=== PATIENT | male | born 1945 | race Caucasian/White ===

== ENCOUNTER 2016-07-31 11:28 | Inpatient (IN) | payer MEDICARE, MEDICAID ==
[2016-07-31] VITALS (8 sets, daily range): BP systolic 71–107; BP diastolic 50–75
[~2016-07-31] VITALS: Ht 172.7 cm; Wt 79.1 kg
[~2016-07-31 11:28] MED LIST: ADVAIR DISKU IN; AMLODIPINE BESYL5 MG PO; ASMANEX 120220 MCG IN; ASMANEX 30110 MCG IN; ASPIRIN ADULT L81 MG PO; ASPIRIN CHEWABL81 MG OR; ASPIRIN CHEWABL81 MG PO; ASPIRIN LOW DOS81 M2 PO; ATORVASTATIN CA40 MG PO; AVELOX400 MG PO; AZITHROMYCIN500 MG PO; BACLOFEN10 MG PO; BACTRIM DS1 TAB PO; BROVANA15 MCG IN; BUDESONID2 IN; CIPROFLOXACN500 MG PO; COMBIVENT IN; COMBIVENT RESPIMAT IN; COUMADIN10 MG PO; COUMADIN7.5 MG PO; DEBROX6.5 % AU; DIGOXIN0.125 MG PO; DOXYCYCL HYC100 M3 OR; DULERA1 AE1 IN; DUONEB IN; FLEET RE; FLOVENT HFA220 MCG IN; HYDROCHLORO25 MG/TAB PO; IPRATROPIU0.5 MG/3 M IN; ISOSORB MONO30 MG PO; ISOSORBIDE MONO60 MG PO; LEVALBUTERO1 IN; LEVAQUIN750 MG PO; LIPITOR20 MG PO; LIPITOR40 M1 PO; LISINOP/HCTZ1 TAB PO; LISINOPRIL10 MG PO; LISINOPRIL20 M1 PO; LOPRESSOR25 MG PO; LOSARTAN POT100 MG PO; LOSARTAN POTASS50 MG PO; LOVENOX80 MG/0.8 SC; MAG CITRATE PO; MEDDOSEPAK PO; METO50TA52 PO; METOPROL TAR25 MG PO; METOPROLOL50 M1 PO; MIRALAX3350 N1 PO; MUCINEX600 MG PO; NITROGLYCER0.4 MG/HR TD; NITROSTAT0.4 MG SL; NO HOME MEDS; PEPCID20 MG PO; PHENERGAN25 MG/TAB PO; PLAVIX75 MG PO; PREDNISONE10 MG PO; PREDNISONE20 MG OR; PREDNISONE50 MG PO; PROAIR HFA IN; ROBITUSSIN AC10 ML PO; SOLU-MEDROL125 MG IM; SPIRIVA HANDIHALER IN; SUPER B COM2 PO; SYMBICORT1 AE1 IN; TAMSULOSIN HCL0.4 MG PO; TAMSULOSIN0.4 MG PO; TRAMADOL HCL50 MG PO; VENTOLIN HFA IN; ZITHROMAX250 MG PO; ZPAK PO; [UNRECOGNIZED DRUG - OTHER]
[2016-07-31 12:01] LABS: HEMATOCRIT 37.4 % (39.0-50.0); HEMOGLOBIN 13.5 g/dl (14.0-18.0); IMMATURE GRANULOCYTES 1.1 % (0.0-1.0); MEAN CORPUSCULAR HGB 33.9 pG CALC (26.0-32.0); MEAN CORPUSCULAR HGB CONC 36.1 g/L CALC (32.0-36.0); NEUT# 4.77 thou/uL (1.82-7.42); RED BLOOD COUNT 3.98 mill/uL (4.70-6.10); RED CELL DISTRI WIDTH 12.2 % (11.5-15.5)
[2016-07-31 12:16] LABS: BILIRUBIN, TOTAL 0.7 mg/dL (0.0-1.4); POTASSIUM 3.7 mmol/l (3.5-5.1); TOTAL PROTEIN 5.9 g/dL (6.3-8.2)
[2016-07-31 12:35] LABS: INTERNATIONAL NORMALIZED RATIO 2.4 RATIO (0.7-1.3); PROTHROMBIN TIME 27.8 SECONDS (9.0-12.5)
[2016-07-31] MEDS ORDERED: CEFUROXIME250 MG PO (12:37)
[2016-07-31] MEDS ORDERED: COUMADIN5 MG PO (12:39)
[2016-07-31] MEDS ORDERED: CENTRUM PO (12:40)
[2016-07-31] MEDS ORDERED: DUONEB IN (12:41)
[2016-07-31] MEDS ORDERED: IRON45 MG PO (12:42)
[2016-07-31] MEDS ORDERED: FAMOTIDINE20 M1 PO (12:43)
[2016-07-31] MEDS ORDERED: PROAIR HFA108 MCG/AC IN (12:44)
[2016-07-31] MEDS ORDERED: MICRO-K10 ME1 PO (12:59)
[2016-07-31] MEDS ORDERED: BUMETANIDE1 MG PO (13:00)
[2016-07-31] MEDS ORDERED: METOLAZONE5 MG PO (13:01)
[2016-07-31 13:33] LABS: URINE BILIRUBIN - DIPSTICK NEGATIVE (NEGATIVE); URINE BLOOD DIPSTICK TRACE-INTACT (NEGATIVE); URINE COLOR YELLOW; URINE GLUCOSE - DIPSTICK NEGATIVE (NEGATIVE); URINE KETONE NEGATIVE (NEGATIVE); URINE LEUK ESTERASE NEGATIVE (NEGATIVE); URINE NITRITE - DIPSTICK NEGATIVE (Negative); URINE PROTEIN - DIPSTICK 100 mg/dL (NEG-TRACE); URINE UROBILINOGEN - DIPSTICK 0.2 E.U./dL (0.2)
[2016-07-31 13:35] LABS: URINE CLARITY SLIGHT CLOUDY
[2016-07-31 13:38] LABS: URINE EPITHELIAL CELLS RARE EPI/hpf (0-FEW); URINE MUCUS MODERATE hpf (NONE-FEW); URINE RBC 0-2 RBC/hpf (0-5)
[2016-08-01] VITALS (11 sets, daily range): BP systolic 86–108; BP diastolic 54–78
[2016-08-01 04:45] LABS: HEMATOCRIT 35.4 % (39.0-50.0); HEMOGLOBIN 12.4 g/dl (14.0-18.0); IMMATURE GRANULOCYTES 1.1 % (0.0-1.0); MEAN CELL VOLUME 94.7 fL CALC (80.0-100.0); MEAN CORPUSCULAR HGB 33.2 pG CALC (26.0-32.0); NEUT# 3.04 thou/uL (1.82-7.42); RED BLOOD COUNT 3.74 mill/uL (4.70-6.10); RED CELL DISTRI WIDTH 12.2 % (11.5-15.5)
[2016-08-01 04:57] LABS: MAGNESIUM 1.8 mg/dL (1.6-2.3)
[2016-08-01 05:00] LABS: CALCIUM 8.2 mg/dL (8.4-10.2); CREATININE 2.1 mg/dL (0.7-1.3); INTERNATIONAL NORMALIZED RATIO 2.4 RATIO (0.7-1.3); POTASSIUM 3.1 mmol/l (3.5-5.1); PROTHROMBIN TIME 28.4 SECONDS (9.0-12.5)
[2016-08-02 05:32] VITALS: BP 117/80
[2016-08-02 06:04] LABS: HEMATOCRIT 38.5 % (39.0-50.0); HEMOGLOBIN 13.5 g/dl (14.0-18.0); IMMATURE GRANULOCYTES 1.5 % (0.0-1.0); MEAN CELL VOLUME 96.5 fL CALC (80.0-100.0); MEAN CORPUSCULAR HGB 33.8 pG CALC (26.0-32.0); MEAN CORPUSCULAR HGB CONC 35.1 g/L CALC (32.0-36.0); NEUT# 3.96 thou/uL (1.82-7.42); RED BLOOD COUNT 3.99 mill/uL (4.70-6.10); RED CELL DISTRI WIDTH 12.2 % (11.5-15.5)
[2016-08-02 06:32] LABS: INTERNATIONAL NORMALIZED RATIO 1.7 RATIO (0.7-1.3); PROTHROMBIN TIME 19.6 SECONDS (9.0-12.5)
[2016-08-02 06:34] LABS: CALCIUM 8.4 mg/dL (8.4-10.2); CREATININE 1.7 mg/dL (0.7-1.3); POTASSIUM 3.9 mmol/l (3.5-5.1)
[2016-08-02 08:05] VITALS: BP 106/74
[2016-08-02 12:19] VITALS: BP 91/63; BP 99/69
== END 2016-08-02 15:29 | disposition home or self-care (01) | DRG 309 ==
LOC: ENPENDDIS → ED 11:28 → ED-I 14:16 → ED 16:11 → ICU 16:12 → MS2 08-01 15:20
PROVIDERS: Emergency Medicine; ADMIT Internal Medicine; ATTEND Internal Medicine
DX: I48.0 Paroxysmal atrial fibrillation (principal); N17.9 Acute kidney failure, unspecified; J44.9 Chronic obstructive pulmonary disease, unspecified; I50.9 Heart failure, unspecified; I13.0 Hypertensive heart and chronic kidney disease with heart failure and stage 1 through stage 4 chronic kidney disease, or unspecified chronic kidney disease; E86.0 Dehydration; I95.1 Orthostatic hypotension; E87.6 Hypokalemia; N18.2 Chronic kidney disease, stage 2 (mild); I25.118 Atherosclerotic heart disease of native coronary artery with other forms of angina pectoris; I25.2 Old myocardial infarction; I73.9 Peripheral vascular disease, unspecified; T50.2X5A Adverse effect of carbonic-anhydrase inhibitors, benzothiadiazides and other diuretics, initial encounter; E78.5 Hyperlipidemia, unspecified; Z91.14 Patient's other noncompliance with medication regimen; Z87.891 Personal history of nicotine dependence; Z95.820 Peripheral vascular angioplasty status with implants and grafts; Z86.73 Personal history of transient ischemic attack (TIA), and cerebral infarction without residual deficits; Z79.01 Long term (current) use of anticoagulants; Z95.1 Presence of aortocoronary bypass graft

== ENCOUNTER 2016-08-22 12:02 | Inpatient (IN) | payer MEDICARE, MEDICAID ==
[2016-08-22] VITALS (8 sets, daily range): BP systolic 105–114; BP diastolic 66–76
[~2016-08-22] VITALS: Ht 172.7 cm; Wt 83.9 kg
[~2016-08-22 12:02] MED LIST changes: +BUMETANIDE1 MG PO; +CEFUROXIME250 MG PO; +CENTRUM PO; +COUMADIN5 MG PO; +FAMOTIDINE20 M1 PO; +IRON45 MG PO; +METOLAZONE5 MG PO; +MICRO-K10 ME1 PO; +PROAIR HFA108 MCG/AC IN
--- NOTE | 2016-08-22 12:04 | NUR ---
PT TO ROOM FOR TREATMENT VIA WHEELCHAIR
--- NOTE | 2016-08-22 12:22 | NUR ---
PT C/O SOBA ND RT LEG EDEMA X2 YEARS. STATES HIS HH THERAPIST TOLD HIM HE SHOULD BE EXAMINED D/T SOB. VSS. LUNGS WITH RHONCHI BILATERALLY AND 2+ PITTING EDEMA TO RLE
[2016-08-22 12:44] LABS: HEMATOCRIT 32.6 % (39.0-50.0); HEMOGLOBIN 11.1 g/dl (14.0-18.0); IMMATURE GRANULOCYTES 1.1 % (0.0-1.0); MEAN CELL VOLUME 98.8 fL CALC (80.0-100.0); MEAN CORPUSCULAR HGB 33.6 pG CALC (26.0-32.0); NEUT# 4.27 thou/uL (1.82-7.42); RED BLOOD COUNT 3.3 mill/uL (4.70-6.10); RED CELL DISTRI WIDTH 12.4 % (11.5-15.5)
[2016-08-22 13:00] LABS: INTERNATIONAL NORMALIZED RATIO 1.7 RATIO (0.7-1.3)
[2016-08-22 13:04] LABS: ALBUMIN 2.8 g/dL (3.2-5.0); ALKALINE PHOSPHATASE 106 u/l (38-126); ANION GAP 8 (6-22 (CALC)); BILIRUBIN, TOTAL 0.7 mg/dL (0.0-1.4); BUN 26 mg/dL (8-23); BUN/CREATININE RATIO 21 (12-20 (CALC)); CALCIUM 8.3 mg/dL (8.4-10.2); CARBON DIOXIDE 28 mmol/l (22-30); CHLORIDE 106 mmol/l (95-108); CREATININE 1.3 mg/dL (0.7-1.3); GFR 54 ML/MIN (>=60 (CALC)); GFR FOR AFR.AMER. > 60 ML/MIN (>=60 (CALC)); GLUCOSE 112 mg/dL (82-115); POTASSIUM 4.2 mmol/l (3.5-5.1); SGOT/AST 46 u/l (19-48); SGPT/ALT 41 u/l (11-66); SODIUM 138 mmol/l (137-146); TOTAL PROTEIN 5.6 g/dL (6.3-8.2)
[2016-08-22 13:16] LABS: MYOGLOBIN 93 ng/mL (0 - 121)
--- NOTE | 2016-08-22 13:30 | NUR ---
HR 129, BP 112/67. DENIES SOB OR CHEST PAIN AT THIS TIME. NO ACUTE DISTRESS.
--- NOTE | 2016-08-22 14:09 | NUR ---
HR CONTINUES 129 WITH CARDIZEM GTT AT 15MG/HR. DIGOXIN IV BOLUS GIVENA S ORDERED. PT RESTING WITH EYES CLOSED, O2 SAT 89-90% ON RA WHILE SLEEPING, SUPPLEMENTAL O2 @2L VIA NC
[2016-08-22] MEDS ORDERED: METOPROL TAR25 MG PO (14:23)
--- NOTE | 2016-08-22 15:47 | NUR ---
HR 126, AMIODARONE IV PUSH ORDERED. PT SITTING UP IN BED EATING LUNCH. NO DISTRESS,NO CP OR SOB. SRX2 AND CALL LIGHT WITHIN REACH. AT BEDSIDE. AWARE OF POC ADN AGREEABLE
--- NOTE | 2016-08-22 16:15 | NUR ---
CALLED REPORT TO MATY CAMACHO RN ICU
--- NOTE | 2016-08-22 16:23 | NUR ---
PT UP TO BSC FOR BM, TOELRATED WELL. VSS
--- NOTE | 2016-08-22 16:25 | NUR ---
TRANSPORTED TO ICU VIA STRETCHER IN STABLE CONDITION
--- NOTE | 2016-08-22 16:45 | NUR ---
PT ADMITTED TO ICU BED 5 VIA STRETCHER, PT ALERT AND ORIETNED, STOOD OFF STRECTHER AND TRASNFERRED TO BED WITH STROGN STEADY GAIT, ADMISSION ASSESSMENT COMPLETED T CAME TO ER RELATED TO INCREASED SHORTNESS OF BREATH, CURRENTLY RESTING WITH NO SOB OR DISTRESS NOTED LUNG SOUNDS CLEAR/DIMINSHED WITH O2 ON AT 2L VIA NC, SKIN WARM DRY INTACT, LARGE BAND AID NOTED TO R THIGHT RELATED TO BURN AT HOME, TELE READING A FIB, ORIENTED TO ROOM AND UNIT SAFETY MEASURES INTRODUCED, CALL MURRAY WITHIN REACH, WILL CONTINUE TO MONITOR.
--- NOTE | 2016-08-22 17:35 | NUR ---
SET UP ASSIST PROVIDED FOR PM MEAL, AT BEDSIDE
--- NOTE | 2016-08-22 18:45 | NUR ---
REPORT FROM Yoandy WEBSTER LPN. ASSUMED PT. CARE.
--- NOTE | 2016-08-22 19:35 | NUR ---
PT. FOUND RESTING IN BED WITH EYES CLOSED. AWAKENS TO LIGHT VERBAL STIMULI. PT. HAS C/O BILATERAL HAND CRAMPING. DENIES OTHER COMPLAINTS. DENIES CP OR SOB. DENIES DIZZINESS OR LIGHTHEADED. LUNGS CLEAR AND EQUAL TO AUSCULTATION BILATERALLY. REMAINS IN A-FIB WITH RATE BETWEEN 90-110. CONTROLLED AT THIS TIME. APPEARS IN NO DISTRESS. TRACE EDEMA NOTED. BILAT PEDAL PULSES WEAK.
--- NOTE | 2016-08-22 21:30 | NUR ---
PM MEDICATIONS PROVIDED. PT. MEDICATED WITH HIS DAILY COUMADIN DOSE AND MEDICATION FOR C/O BILATERAL HAND CRAMPING. RESPS REMAIN EVEN AND UNLABORED. SKIN WARM AND DRY. ERIC. REMAINS ON 2L NC WITH SPO2 OF 99%. NO DISTRESS. AWAKE WATCHING TELEVISION AT THIS TIME. CALL LIGHT WITHIN REACH. WILL CONTINUE TO MONITOR.
[2016-08-23] VITALS (14 sets, daily range): BP systolic 104–156; BP diastolic 66–99
--- NOTE | 2016-08-23 00:25 | NUR ---
PT. REMAINS AWAKE, ALERT, ORIENTED X 3. NO DISTRESS. WATCHING TELEVISION AT THIS TIME. MAE. REYES. REMAINS AFEBRILE. SKIN WARM AND DRY. PT. DENIES COMPLAINTS OR NEEDS. WILL CONTINUE TO MONITOR. CALL LIGHT WITHIN REACH.
--- NOTE | 2016-08-23 02:05 | NUR ---
PT. C/O INCREASING SOB. RT CALLED FOR NEB TREATMENT. REMAINS IN A-FIB WITH RATE BETWEEN 105-120.
--- NOTE | 2016-08-23 02:45 | NUR ---
PT. RESTING WITH EYES CLOSED AT THIS TIME. NO DISTRESS NOTED. SPO2 IS 96% ON 2L NC. CALL LIGHT WITHIN REACH. WILL CONTINUE TO MONITOR.
--- NOTE | 2016-08-23 04:28 | NUR ---
PT. RESTING ON RT. SIDE. NO DISTRESS NOTED. RESPS EVEN AND UNLABORED. SKIN WARM AND DRY. BLOOD SAMPLES OBTAINED AND SENT TO LAB. PT. REMAINS IN A-FIB WITH RATE OF 95-120'S. CALL LIGHT REMAINS IN REACH.
[2016-08-23 06:09] LABS: HEMATOCRIT 32.9 % (39.0-50.0); HEMOGLOBIN 11.1 g/dl (14.0-18.0); IMMATURE GRANULOCYTES 1.9 % (0.0-1.0); MEAN CELL VOLUME 97.3 fL CALC (80.0-100.0); MEAN CORPUSCULAR HGB 32.8 pG CALC (26.0-32.0); MEAN CORPUSCULAR HGB CONC 33.7 g/L CALC (32.0-36.0); NEUT# 4.36 thou/uL (1.82-7.42); RED BLOOD COUNT 3.38 mill/uL (4.70-6.10)
--- NOTE | 2016-08-23 06:10 | NUR ---
PT. RESTING ON RT. SIDE. NO RESP DISTRESS NOTED. RESPS EVEN AND UNLABORED. 100% ON 2L VIA NC. VOICES NO COMPLAINT OR NEED AT THIS TIME. AROUSABLE TO LIGHT VERBAL STIMULI. NEB TREATMENT IN PROGRESS VIA RT. REMAINS IN A-FIB WITH RATE BETWEEN 100-120. VSS.
[2016-08-23 06:32] LABS: ANION GAP 8 (6-22 (CALC)); BUN 30 mg/dL (8-23); BUN/CREATININE RATIO 26 (12-20 (CALC)); CARBON DIOXIDE 25 mmol/l (22-30); CHLORIDE 107 mmol/l (95-108); CREATININE 1.1 mg/dL (0.7-1.3); GFR > 60 ML/MIN (>=60 (CALC)); GFR FOR AFR.AMER. > 60 ML/MIN (>=60 (CALC)); GLUCOSE 144 mg/dL (82-115); POTASSIUM 4.9 mmol/l (3.5-5.1); SODIUM 135 mmol/l (137-146)
--- NOTE | 2016-08-23 07:00 | NUR ---
REPORT RECEIVED FROM FELICITY DURAN PT RESTING QUIETLY, AWAKE AND ALERT. CALL LIGHT WITHIN REACH. INSTRUCTED PT TO CALL FOR ASSISTANCE, PT VERBALIZES UNDERSTANDING.
[2016-08-23 07:53] LABS: INTERNATIONAL NORMALIZED RATIO 1.7 RATIO (0.7-1.3); PROTHROMBIN TIME 18.7 SECONDS (9.0-12.5)
--- NOTE | 2016-08-23 09:00 | NUR ---
MD PRESENT AND IN ROOM FOR AM ASSESSMENT, WILL AWAIT FURTHER ORDERS TO THE PLAN OF CARE.
--- NOTE | 2016-08-23 11:00 | NUR ---
PT RESTING IN BED, SPOUSE AT BS. DENIES PAIN, DISCOMFORT OR SOB. HR IS 124. DENIES NEEDS AT THIS TIME. WILL CONTINUE TO MONITOR.
--- NOTE | 2016-08-23 13:00 | NUR ---
PT RESTING WITH EYES CLOSED, HR IS 98. CALL LIGHT WITHIN REACH. WILL CONTINUE TO MONITOR.
--- NOTE | 2016-08-23 15:06 | NUR ---
PT HR IS 123, RESTING COMFORTABLY IN BED. DENIES NEEDS OR CONCERNS. DOES NOT APPEAR TO BE SOB. WILL CONTINUE TO MONITOR.
--- NOTE | 2016-08-23 19:46 | NUR ---
BEDSIDE REPORT RECEIVED FROM FELICITY BARNES. PT SITTING UP IN BED WATCHING TV. ASSESSMENT COMPLETE. DENIES PAIN AT THIS TIME. RESPIRATIONS EVEN AND UNLABORED. DECLINED VENTOLIN INHALER. PLAN OF CARE DISCUSSED. PT ENCOURAGED TO VERBALIZE CONCERNS. STATES UNDERSTANDING. SAFETY MEASURES IN PLACE. CALL LIGHT WITHIN REACH.
--- NOTE | 2016-08-23 21:59 | NUR ---
PT SITTING UP IN BED TALKING ON CELLPHONE. ALERT AND ORIENTED WITH NO REQUESTS AT THIS TIME. DENIES PAIN. RESPIRATIONS EVEN AND UNLABORED. USING BEDSIDE URINAL TO VOID CLEAR YELLOW URINE. TOLERATED MEDICATIONS WELL. SAFETY MEASURES IN PLACE. CALL LIGHT WITHIN REACH.
[2016-08-24] VITALS (11 sets, daily range): BP systolic 96–136; BP diastolic 64–85
--- NOTE | 2016-08-24 00:21 | NUR ---
PT ALSEEP AT THIS TIME. NO SIGNS OF DISTRESS NOTED. RESPIRATIONS EVEN AND UNLABORED. SATURATION DROPS TO 88 WITH EXERTION AND REPOSTIIONING AND COMES BACK ABOVE 90 AT REST. SAFETY MEASURES IN PLACE. CALL LIGHT WITHIN REACH.
--- NOTE | 2016-08-24 02:32 | NUR ---
PT SITTING UP AWAKE IN BED AT THIS TIME. ALERT AND ORIENTED; PLEASANT. DENIES PAIN. RESPIRATIONS EVEN AND UNLABORED. NO REQUESTS AT THIS TIME. UP AD ARIEL TO THE BATHROOM. SAFETY MEASURES IN PLACE. CALL LIGHT WITHIN REACH.
--- NOTE | 2016-08-24 04:00 | NUR ---
PT QUIET THROUGHOUT THE NIGHT. VS STABLE. CALLS FOR ASSISTANCE NEEDED. NO PAIN OR RESPIRATORY DISTRESS. DRY COUGH NOTED.
[2016-08-24 05:14] LABS: HEMATOCRIT 34.6 % (39.0-50.0); HEMOGLOBIN 11.9 g/dl (14.0-18.0); IMMATURE GRANULOCYTES 1.1 % (0.0-1.0); MEAN CELL VOLUME 96.1 fL CALC (80.0-100.0); MEAN CORPUSCULAR HGB 33.1 pG CALC (26.0-32.0); MEAN CORPUSCULAR HGB CONC 34.4 g/L CALC (32.0-36.0); NEUT# 8.11 thou/uL (1.82-7.42); RED BLOOD COUNT 3.6 mill/uL (4.70-6.10); RED CELL DISTRI WIDTH 12.1 % (11.5-15.5)
[2016-08-24 05:28] LABS: ANION GAP 10 (6-22 (CALC)); BUN 31 mg/dL (8-23); BUN/CREATININE RATIO 25 (12-20 (CALC)); CALCIUM 8.3 mg/dL (8.4-10.2); CARBON DIOXIDE 24 mmol/l (22-30); CHLORIDE 106 mmol/l (95-108); CREATININE 1.2 mg/dL (0.7-1.3); GFR 60 ML/MIN (>=60 (CALC)); GFR FOR AFR.AMER. > 60 ML/MIN (>=60 (CALC)); GLUCOSE 157 mg/dL (82-115); POTASSIUM 4.7 mmol/l (3.5-5.1); SODIUM 136 mmol/l (137-146)
--- NOTE | 2016-08-24 05:58 | NUR ---
PT RESTING IN BED SUPINE WITH EYES CLOSED. NO CHANGES IN ASSESSMENT OR CONDITION. USES CALL MURRAY NEEDED.
--- NOTE | 2016-08-24 06:45 | NUR ---
REPORT RECEIVED FROM ANGELIA RUSS. PT RESTING WITH EYES CLOSED. CALL LIGHT WITHIN REACH. WILL CONTINUE TO MONITOR.
--- NOTE | 2016-08-24 07:47 | NUR ---
PT ALERT AND AWAKE, BREAKFAST TRAY PROVIDED, PT VOICES NO CONCERNS AT THIS TIME. FAMILY AT BS, CALL LIGHT WITHIN REACH. INSTRUCTED PT TO CALL FOR ASSISTANCE, PT STATES UNDERSTANDING.
--- NOTE | 2016-08-24 08:51 | NUR ---
PT STATES "WHEN AM I GOING TO SEE ONE OF THOSE DR'S? I NEED SOMETHING TO SOOTH MY THROAT." PT ASKED TO EXPLAIN SYMPTOMS OF THROAT AND HE STATES "WELL LIZ BEEN COUGHING AND HAD A SORE THROAT SINCE I WAS IN THE ER." PT RE-EDUCATED THAT HE RECEIVED SOLUMEDROL, AND LASIX TO ASSIST IN OPENING UP AIRWAY AND DECREASING EXCESS FLUIDS IN PULMONARY SYSTEM. PT STATES UNDERSTANDING, WILL NOTIFY MD WHEN ON FLOOR, OF PT COMPLAINT.
[2016-08-24 08:57] LABS: PROTHROMBIN TIME 34.9 SECONDS (9.0-12.5)
--- NOTE | 2016-08-24 10:30 | NUR ---
MD ON FLOOR, AT THIS TIME, WILL GIVE ALL AM SCHEDULED MEDICATIONS AT THIS TIME.
--- NOTE | 2016-08-24 15:54 | NUR ---
PT GIVEN ROBITUSSIN WITH CODEINE AND AMIODARONE 1X DOSE AT THIS TIME. BP IS 104/64. MD AWARE OF HYPOTENSION. WILL CONTINUE TO MONITOR.
--- NOTE | 2016-08-24 20:00 | NUR ---
awake. denies c/o. environmental monitoring technician shows a fib. #20 lac saline lock. po fluids taken well. voids per urinal. fall precautions cont.
--- NOTE | 2016-08-24 21:05 | NUR ---
robitussin ac 10cc given per request for cough.
--- NOTE | 2016-08-24 22:00 | NUR ---
watching tv & using phone. no distress.
[2016-08-25] VITALS (12 sets, daily range): BP systolic 118–154; BP diastolic 75–97
--- NOTE | 2016-08-25 00:01 | NUR ---
eyes closed. talks out in sleep @ times.
--- NOTE | 2016-08-25 02:00 | NUR ---
resting quietly. no apparent distress. monitor shows jct'l rhythm.
--- NOTE | 2016-08-25 04:00 | NUR ---
eyes closed. no distress. monitor shows jct'l rhythm.
--- NOTE | 2016-08-25 05:15 | NUR ---
lab here. blood drawn.
[2016-08-25 05:57] LABS: HEMATOCRIT 31.7 % (39.0-50.0); HEMOGLOBIN 11.1 g/dl (14.0-18.0); IMMATURE GRANULOCYTES 1.9 % (0.0-1.0); MEAN CELL VOLUME 96.6 fL CALC (80.0-100.0); MEAN CORPUSCULAR HGB 33.8 pG CALC (26.0-32.0); NEUT# 6.14 thou/uL (1.82-7.42); RED BLOOD COUNT 3.28 mill/uL (4.70-6.10); RED CELL DISTRI WIDTH 12.4 % (11.5-15.5)
--- NOTE | 2016-08-25 06:01 | NUR ---
sitting on side of bed. battery replaced in holter monitor.
[2016-08-25 06:06] LABS: INTERNATIONAL NORMALIZED RATIO 3.5 RATIO (0.7-1.3)
[2016-08-25 06:08] LABS: ANION GAP 7 (6-22 (CALC)); BUN 30 mg/dL (8-23); BUN/CREATININE RATIO 26 (12-20 (CALC)); CALCIUM 8.1 mg/dL (8.4-10.2); CARBON DIOXIDE 26 mmol/l (22-30); CHLORIDE 106 mmol/l (95-108); CREATININE 1.2 mg/dL (0.7-1.3); GFR 60 ML/MIN (>=60 (CALC)); GFR FOR AFR.AMER. > 60 ML/MIN (>=60 (CALC)); GLUCOSE 141 mg/dL (82-115); SODIUM 134 mmol/l (137-146)
--- NOTE | 2016-08-25 07:29 | NUR ---
Pt resting quietly in bed. No resp. distress noted. Pt alert and oriented. Skin warm and dry. Able to answer questions. Assessment completed. Will continue to monitor. Call light within reach.
--- NOTE | 2016-08-25 12:49 | NUR ---
Pt resting quietly in bed. No resp. distress noted. No change in assessment. at bedside. Will continue to monitor condition. Call light within reach.
--- NOTE | 2016-08-25 18:19 | NUR ---
Pt continues to rest quietly in bed. No resp distress noted. No change in assessment. Call light within reach.
--- NOTE | 2016-08-25 19:00 | NUR ---
watching tv. denies c/o. residential tech shows jct'l rhythm hr 110. coarse breath sounds bibas. po fluids taken well. voids per urinal. fall precautions cont.
--- NOTE | 2016-08-25 21:00 | NUR ---
robitussin ac 10cc given per request for cough.
--- NOTE | 2016-08-25 22:00 | NUR ---
watching tv & talking on phone. no resp diff. monitor shows jct'l rhythm.
[2016-08-26] VITALS (9 sets, daily range): BP systolic 110–157; BP diastolic 69–112
--- NOTE | 2016-08-26 00:01 | NUR ---
eyes closed. no distress. monitor shows jct'l rhythm.
--- NOTE | 2016-08-26 02:00 | NUR ---
awake. requested neb nx. rt notified.
--- NOTE | 2016-08-26 04:10 | NUR ---
lab here. blood drawn.
[2016-08-26 04:56] LABS: ANION GAP 6 (6-22 (CALC)); BUN 29 mg/dL (8-23); BUN/CREATININE RATIO 24 (12-20 (CALC)); CALCIUM 8.1 mg/dL (8.4-10.2); CARBON DIOXIDE 26 mmol/l (22-30); CHLORIDE 108 mmol/l (95-108); CREATININE 1.2 mg/dL (0.7-1.3); GFR 60 ML/MIN (>=60 (CALC)); GFR FOR AFR.AMER. > 60 ML/MIN (>=60 (CALC)); GLUCOSE 86 mg/dL (82-115); POTASSIUM 4.6 mmol/l (3.5-5.1); SODIUM 135 mmol/l (137-146)
[2016-08-26 05:12] LABS: INTERNATIONAL NORMALIZED RATIO 2.1 RATIO (0.7-1.3); PROTHROMBIN TIME 23.6 SECONDS (9.0-12.5)
--- NOTE | 2016-08-26 06:03 | NUR ---
awake. no distress. monitor shows jct'l rhythm hr 106.
--- NOTE | 2016-08-26 07:43 | NUR ---
PT AWOKEN FOR BREAKFAST. NO RESP. DISTRESS NOTED. PT ALERT AND ORIENTED. SKIN WARM AND DRY. CALL LIGHT WITHIN REACH.
--- NOTE | 2016-08-26 09:00 | NUR ---
PT RESTING QUIETLY IN BED. NO RESP. DISTRESS NOTED. ASSESSMENT COMPLETED. SALINE LOCK IN LEFT AC, SITE WITHOUT REDNESS OR EDEMA NOTED. DR. GALEANO IN. NEW ORDERS RECEIVED AND CARRIED OUT. WILL CONTINUE TO MONITOR PATIENT. CALL LIGHT WITHIN REACH.
--- NOTE | 2016-08-26 09:30 | NUR ---
AT BEDSIDE VISITING. NO CHANGE IN ASSESSMENT. WILL CONTINUE TO MONITOR.
--- NOTE | 2016-08-26 12:50 | NUR ---
PT CONTINUES TO REST QUIETLY IN BED. REMAINS AT BEDSIDE. NO RESP. DISTRESS NOTED. NO CHANGE IN ASSESSMENT. PT UP TO BEDSIDE COMMODE WITH STANDBY ASSSIT. CALL LIGHT WITHIN REACH. WILL CONTINUE TO MONITOR.
--- NOTE | 2016-08-26 15:45 | NUR ---
REPORT RECIEVED FROM FELICITY GREEN; PT ARRIVED TO FLOOR AT THIS TIME VIA WC; PT ORIENTED TO ROOM AND CALL LIGHT SYSTEM; PT DENIES ANY PAIN OR SOB AT THIS TIME; TELE IN PLACE; PT DENIES ANY NEEDS AT THIS TIME; CALL LIGHT WITHIN REACH; WILL CONTINUE TO MONITOR
--- NOTE | 2016-08-26 15:45 | NUR ---
Pt transported to the Med/Surg unit room 262 via wheelchair accompained by . Report given to Yina Brock RN. Pt alert and oriented. Skin warm and dry, color pink. No resp. distress noted. 02 at 3 liters via NC. Pt ambulated from bed to W/C and W/C to bed. Call light within reach.
--- NOTE | 2016-08-26 20:03 | NUR ---
PT.ASSESSED,SKIN INTACT,LEFT MARKETING SYSTEMS ANALYST SLIGHTLY WEAKER THAN RIGHT, LEFT PEDAL PULSE WEAK, NO EDEMA, DENIES PAIN AT THIS TIME, LOC X3, FACIAL/SEMETRIC; WILL CONTINUE TO MONITOR, PT.INSTRUCTED TO CALL IF NEEDS ARISE, CALL LIGHT W/IN REACH
--- NOTE | 2016-08-27 01:15 | NUR ---
HEARD SOUNDS COMING FROM ROOM, UPON ENTERING ROOM, PT.APPEARED TO BE TALKING IN HIS SLEEP, I WOKE PT.UP TO CONFIRM HE WAS NOT IN ANY PAIN, DISTRESS OR DISCOMFORT; HE DENIED ANY; PT.INSTRUCTED TO USE CALL LIGHT IF ANY NEEDS ARISE
[2016-08-27 04:15] VITALS: BP 122/86
--- NOTE | 2016-08-27 05:35 | NUR ---
PT.IS AWAKE AND WATCHING TV AT THIS TIME, DENIES ANY NEEDS OR DISCOMFORT.
[2016-08-27 05:36] LABS: INTERNATIONAL NORMALIZED RATIO 1.3 RATIO (0.7-1.3); PROTHROMBIN TIME 14.5 SECONDS (9.0-12.5)
[2016-08-27 05:39] LABS: ANION GAP 8 (6-22 (CALC)); BUN 34 mg/dL (8-23); BUN/CREATININE RATIO 26 (12-20 (CALC)); CALCIUM 8.2 mg/dL (8.4-10.2); CARBON DIOXIDE 23 mmol/l (22-30); CHLORIDE 105 mmol/l (95-108); CREATININE 1.3 mg/dL (0.7-1.3); GFR 54 ML/MIN (>=60 (CALC)); GFR FOR AFR.AMER. > 60 ML/MIN (>=60 (CALC)); GLUCOSE 138 mg/dL (82-115); POTASSIUM 5.1 mmol/l (3.5-5.1); SODIUM 131 mmol/l (137-146)
--- NOTE | 2016-08-27 07:00 | NUR ---
RECEIVED BEDSIDE REPORT FROM IVIS BLEVINS. RESTING IN BED WITH EYES CLOSED, AWAKENS EASILY. RESPS EVEN AND UNLABORED ON O2 VIA NC, TELE MONITOR IN PLACE. VOICES NO NEEDS AT THIS TIME. PLAN OF CARED DISCUSSED. SAFETY PRECAUTIONS REINFORCED. BED IN LOWEST POSITION WITH WHEELS LOCKED. CALL LIGHT WITHIN REACH. ENCOURAGED PT TO CALL FOR ANY NEEDS.
[2016-08-27 08:57] VITALS: BP 110/81
--- NOTE | 2016-08-27 09:50 | NUR ---
DR GALEANO IN TO SEE PT, NEW ORDERS RECEIVED.
[2016-08-27 11:37] VITALS: BP 106/69
--- NOTE | 2016-08-27 12:00 | NUR ---
IN HIGH FOWLERS POSITION, RESPS EVEN AN DUNLABORED ON O2 VIA NC, TELE MONITOR IN PLACE. AT BEDSIDE. VOICES NO C/O AT THIS TIME. CALL LIGHT WITHIN REACH. WILL CONTINUE TO MONITOR.
[2016-08-27 15:43] VITALS: BP 114/71
--- NOTE | 2016-08-27 16:00 | NUR ---
RESTING IN BED WITH EYES CLOSED, AWAKENS EASILY. RESPS EVEN AND UNLABORED ON O2 VIA NC, TELE MONITOR IN PLACE. ALL NEEDS MET. WILL CONTINUE TO MONITOR.
[2016-08-27 19:00] VITALS: BP 103/76
--- NOTE | 2016-08-27 19:00 | NUR ---
SHIFT REPORT RECEIVED FROM Bakari MANCIA RN. PATIENT SITTING UP IN BED AND APPEARS NOT TO BE IN ANY APPARENT DISTRESS OR DISCOMFORT. PATIENT IS ALERT AND ORIENTED. WILL CONTINUE TO MONITOR.
--- NOTE | 2016-08-28 | NUR ---
PATIENT RESTING COMFORTABLEY AT THIS TIME. NO ACUTE CHANGES IN CONDITION.
[2016-08-28 00:51] VITALS: BP 124/93
[2016-08-28 04:00] VITALS: BP 131/95
--- NOTE | 2016-08-28 04:00 | NUR ---
NO ACUTE CHANGES NOTED IN PT'S CONDITION.
--- NOTE | 2016-08-28 07:06 | NUR ---
REPORT RECEIVED FROM FELICITY WILSON. PT SITTING UPRIGHT IN BED. DENIES PAIN. STATES ANTICIPATION OF DISCHARGE. DISCHARGE PROCESS DISCUSSED. REPORTING OF CONCERNS ENCOURAGED. CALL LIGHT REVIEWED AND IN REACH. PT STATES UNDERSTANDING.
[2016-08-28 08:08] VITALS: BP 139/90
[2016-08-28 09:40] LABS: INTERNATIONAL NORMALIZED RATIO 1.3 RATIO (0.7-1.3); PROTHROMBIN TIME 14.9 SECONDS (9.0-12.5)
[2016-08-28 12:22] VITALS: BP 135/85
[2016-08-28] MEDS ORDERED: DOXYCYC MONO100 M2 PO (13:52)
[2016-08-28] MEDS ORDERED: ALBUTEROL SUL0.083 % NEB (13:52)
[2016-08-28] MEDS ORDERED: PREDNISONE10 MG PO (13:52)
[2016-08-28] MEDS ORDERED: BIOTUSSIN PO (13:52)
[2016-08-28] MEDS ORDERED: AMIODARONE200 MG PO (13:56)
--- NOTE | 2016-08-28 15:11 | NUR ---
Discharge instructions given. Patient verbalizes understanding of same. Discharged in stable condition via Wheelchair to Home with spouse. All belongings sent with pt.
== END 2016-08-28 15:11 | DRG 309 ==
LOC: ENPENDDIS → ED 12:02 → ED-I 13:54 → ED 14:30 → ICU 14:31 → MS2 08-26 15:45
PROVIDERS: Emergency Medicine; Internal Medicine; ADMIT Internal Medicine; ATTEND Internal Medicine
DX: I48.0 Paroxysmal atrial fibrillation (principal); J44.1 Chronic obstructive pulmonary disease with (acute) exacerbation; J96.10 Chronic respiratory failure, unspecified whether with hypoxia or hypercapnia; D64.9 Anemia, unspecified; Z95.1 Presence of aortocoronary bypass graft; I12.9 Hypertensive chronic kidney disease with stage 1 through stage 4 chronic kidney disease, or unspecified chronic kidney disease; I25.10 Atherosclerotic heart disease of native coronary artery without angina pectoris; N18.2 Chronic kidney disease, stage 2 (mild); I73.9 Peripheral vascular disease, unspecified; E78.5 Hyperlipidemia, unspecified; Z66 Do not resuscitate; Z79.01 Long term (current) use of anticoagulants; Z95.820 Peripheral vascular angioplasty status with implants and grafts; Z87.891 Personal history of nicotine dependence
CPT/HCPCS: J0282; J1160

== ENCOUNTER 2016-09-10 21:44 | Emergency (ER) | payer MEDICARE, MEDICAID ==
[~2016-09-10] VITALS: Ht 172.7 cm; Wt 78.1 kg
[~2016-09-10 21:44] MED LIST changes: +ALBUTEROL SUL0.083 % NEB; +AMIODARONE200 MG PO; +BIOTUSSIN PO; +DOXYCYC MONO100 M2 PO
[2016-09-10 22:05] LABS: HEMATOCRIT 34.7 % (39.0-50.0); HEMOGLOBIN 11.9 g/dl (14.0-18.0); IMMATURE GRANULOCYTES 0.8 % (0.0-1.0); MEAN CELL VOLUME 99.7 fL CALC (80.0-100.0); MEAN CORPUSCULAR HGB 34.2 pG CALC (26.0-32.0); MEAN CORPUSCULAR HGB CONC 34.3 g/L CALC (32.0-36.0); NEUT# 7.31 thou/uL (1.82-7.42); RED BLOOD COUNT 3.48 mill/uL (4.70-6.10); RED CELL DISTRI WIDTH 13.4 % (11.5-15.5)
[2016-09-10 22:23] LABS: ALBUMIN 2.9 g/dL (3.2-5.0); ALKALINE PHOSPHATASE 73 u/l (38-126); ANION GAP 8 (6-22 (CALC)); BILIRUBIN, TOTAL 0.9 mg/dL (0.0-1.4); BUN 30 mg/dL (8-23); BUN/CREATININE RATIO 23 (12-20 (CALC)); CALCIUM 8.2 mg/dL (8.4-10.2); CARBON DIOXIDE 22 mmol/l (22-30); CHLORIDE 109 mmol/l (95-108); CREATININE 1.3 mg/dL (0.7-1.3); GFR 54 ML/MIN (>=60 (CALC)); GFR FOR AFR.AMER. > 60 ML/MIN (>=60 (CALC)); GLUCOSE 145 mg/dL (82-115); INTERNATIONAL NORMALIZED RATIO 2.5 RATIO (0.7-1.3); POTASSIUM 4.5 mmol/l (3.5-5.1); PROTHROMBIN TIME 29.7 SECONDS (9.0-12.5); SGOT/AST 37 u/l (19-48); SGPT/ALT 69 u/l (11-66); SODIUM 134 mmol/l (137-146); TOTAL PROTEIN 5.5 g/dL (6.3-8.2)
--- NOTE | 2016-09-10 22:31 | NUR ---
BREATHING TREATMENT GIVEN. WAS INSTRUCTED IN HOW TO DEPOSIT THE PARTICLES DOWN TO THE LUNGS.
[2016-09-10 22:35] LABS: MYOGLOBIN 58 ng/mL (0 - 121)
[2016-09-10] MEDS ORDERED: MEDDOSEPAK PO (23:46)
[2016-09-11 06:10] VITALS: BP 106/74
== END 2016-09-11 06:37 | disposition home or self-care (01) ==
LOC: ED 21:44
DX: J44.1 Chronic obstructive pulmonary disease with (acute) exacerbation (principal); R06.02 Shortness of breath; R50.9 Fever, unspecified; R07.9 Chest pain, unspecified; I10 Essential (primary) hypertension

== ENCOUNTER 2016-11-27 20:00 | Emergency (ER) | payer MEDICARE, MEDICAID ==
[~2016-11-27] VITALS: Ht 172.7 cm; Wt 81.8 kg
[2016-11-27] MEDS ORDERED: ADULT ASPIRIN E81 MG PO (20:20)
[2016-11-27] MEDS ORDERED: ISOSORBIDE MONO60 MG PO (20:21)
[2016-11-27] MEDS ORDERED: IRON325 M1 PO (20:21)
[2016-11-27] MEDS ORDERED: LIPITOR40 M1 PO (20:22)
[2016-11-27] MEDS ORDERED: METOPROLOL SUCC50 MG PO (20:22)
[2016-11-27] MEDS ORDERED: BUMEX1 M1 PO (20:23)
[2016-11-27] MEDS ORDERED: COUMADIN5 MG PO (20:23)
[2016-11-27 21:05] LABS: HEMOGLOBIN 11.5 g/dl (14.0-18.0); IMMATURE GRANULOCYTES 0.6 % (0.0-1.0); MEAN CELL VOLUME 95.1 fL CALC (80.0-100.0); MEAN CORPUSCULAR HGB 33.1 pG CALC (26.0-32.0); MEAN CORPUSCULAR HGB CONC 34.8 g/L CALC (32.0-36.0); NEUT# 4.4 thou/uL (1.82-7.42); RED BLOOD COUNT 3.47 mill/uL (4.70-6.10); RED CELL DISTRI WIDTH 12.9 % (11.5-15.5)
[2016-11-27 21:28] LABS: ALBUMIN 3.7 g/dL (3.2-5.0); BILIRUBIN, TOTAL 0.9 mg/dL (0.0-1.4); CALCIUM 9.2 mg/dL (8.4-10.2); CREATININE 1.9 mg/dL (0.7-1.3); POTASSIUM 4.6 mmol/l (3.5-5.1); TOTAL PROTEIN 5.9 g/dL (6.3-8.2)
[2016-11-27 21:34] LABS: ACT PARTIAL THROMBO TIME 44.7 SECONDS (20.0-32.5)
[2016-11-27 21:41] LABS: PROTHROMBIN TIME 48.2 SECONDS (9.0-12.5)
[2016-11-27 23:17] LABS: URINE BILIRUBIN - DIPSTICK NEGATIVE (NEGATIVE); URINE BLOOD DIPSTICK TRACE-INTACT (NEGATIVE); URINE CLARITY CLEAR; URINE COLOR YELLOW; URINE GLUCOSE - DIPSTICK NEGATIVE (NEGATIVE); URINE KETONE NEGATIVE (NEGATIVE); URINE LEUK ESTERASE NEGATIVE (NEGATIVE); URINE NITRITE - DIPSTICK NEGATIVE (Negative); URINE PROTEIN - DIPSTICK TRACE mg/dL (NEG-TRACE); URINE UROBILINOGEN - DIPSTICK 0.2 E.U./dL (0.2)
[2016-11-28] MEDS ORDERED: PERCOCET 5/325M1 TAB PO (00:18)
[2016-11-28 00:36] VITALS: BP 107/62
== END 2016-11-28 00:36 | disposition home or self-care (01) ==
LOC: ED 20:00
PROVIDERS: Emergency Medicine
DX: S20.212A Contusion of left front wall of thorax, initial encounter (principal); S80.12XA Contusion of left lower leg, initial encounter; S80.212A Abrasion, left knee, initial encounter; W10.8XXA Fall (on) (from) other stairs and steps, initial encounter; Y93.89 Activity, other specified; Y92.029 Unspecified place in mobile home as the place of occurrence of the external cause; D68.9 Coagulation defect, unspecified; I48.91 Unspecified atrial fibrillation; Z79.01 Long term (current) use of anticoagulants; I10 Essential (primary) hypertension; I25.810 Atherosclerosis of coronary artery bypass graft(s) without angina pectoris; Z95.1 Presence of aortocoronary bypass graft

== ENCOUNTER 2016-12-11 13:43 | Observation (INO) | payer MEDICARE, MEDICAID ==
[~2016-12-11] VITALS: Ht 170.2 cm; Wt 79.4 kg
[~2016-12-11 13:43] MED LIST changes: +ADULT ASPIRIN E81 MG PO; +BUMEX1 M1 PO; +IRON325 M1 PO; +METOPROLOL SUCC50 MG PO; +PERCOCET 5/325M1 TAB PO
--- NOTE | 2016-12-11 14:02 | NUR ---
PATIENT TO ROOM VIA WHEELCHAIR AND PHYSICIAN NOTIFIED OF PATIENT STATUS
--- NOTE | 2016-12-11 14:35 | NUR ---
PT RESTING ON STRETCHER, STATES HE HAD CP THIS AM AT AROUND 7A TOOK NITRO X2 SUBLINGUAL THAT RESOLVED, BUT HAPPENS INTERMITTENTLY, ALSO COMPLAINS OF MILD SOB RELATED TO NO AC AND NO POWER SO UNABLE TO USE NEB MACHINE AT HOME, WHEN ASKED WHY HE DID NOT GO TO A SKILLED NURSING THAT HAD POWER SO HE HAD AC AND COULD USE HIS NEB MACHINE, STATES I DON'T LIKE THE SHELTERS HERE.
[2016-12-11] MEDS ORDERED: CIPROFLOXACN500 MG PO (14:52)
[2016-12-11 15:19] LABS: HEMATOCRIT 34.5 % (39.0-50.0); HEMOGLOBIN 11.9 g/dl (14.0-18.0); IMMATURE GRANULOCYTES 0.5 % (0.0-1.0); MEAN CORPUSCULAR HGB 32.8 pG CALC (26.0-32.0); MEAN CORPUSCULAR HGB CONC 34.5 g/L CALC (32.0-36.0); NEUT# 4.02 thou/uL (1.82-7.42); RED BLOOD COUNT 3.63 mill/uL (4.70-6.10); RED CELL DISTRI WIDTH 12.7 % (11.5-15.5)
[2016-12-11 15:38] LABS: ALBUMIN 3.7 g/dL (3.2-5.0); ALKALINE PHOSPHATASE 90 u/l (38-126); ANION GAP 15 (6-22 (CALC)); BILIRUBIN, TOTAL 1.1 mg/dL (0.0-1.4); BUN 27 mg/dL (8-23); BUN/CREATININE RATIO 16 (12-20 (CALC)); CALCIUM 9.1 mg/dL (8.4-10.2); CARBON DIOXIDE 24 mmol/l (22-30); CHLORIDE 104 mmol/l (95-108); CREATININE 1.7 mg/dL (0.7-1.3); GFR 40 ML/MIN (>=60 (CALC)); GFR FOR AFR.AMER. 48 ML/MIN (>=60 (CALC)); GLUCOSE 88 mg/dL (82-115); POTASSIUM 4.2 mmol/l (3.5-5.1); SGOT/AST 33 u/l (19-48); SGPT/ALT 42 u/l (11-66); SODIUM 139 mmol/l (137-146); TOTAL PROTEIN 6.2 g/dL (6.3-8.2)
--- NOTE | 2016-12-11 15:46 | NUR ---
PT RESTING WATER PROVIDED FOR COMPLAINTS OF "SCRATCHY THROAT", REMAINS AT BEDSIDE.
[2016-12-11 15:47] LABS: INTERNATIONAL NORMALIZED RATIO 3.7 RATIO (0.7-1.3); PROTHROMBIN TIME 44.4 SECONDS (9.0-12.5)
[2016-12-11 15:50] LABS: MYOGLOBIN 125 ng/mL (0 - 121)
--- NOTE | 2016-12-11 16:14 | NUR ---
SBAR PRINTED TO FLOOR
[2016-12-11 17:07] LABS: URINE BILIRUBIN - DIPSTICK NEGATIVE (NEGATIVE); URINE BLOOD DIPSTICK NEGATIVE (NEGATIVE); URINE CLARITY CLEAR; URINE COLOR YELLOW; URINE GLUCOSE - DIPSTICK NEGATIVE (NEGATIVE); URINE KETONE TRACE mg/dL (NEGATIVE); URINE LEUK ESTERASE NEGATIVE (NEGATIVE); URINE NITRITE - DIPSTICK NEGATIVE (Negative); URINE PH 5.5 (4.5-8.0); URINE PROTEIN - DIPSTICK 100 mg/dL (NEG-TRACE); URINE SPECIFIC GRAVITY 1.025; URINE UROBILINOGEN - DIPSTICK 0.2 E.U./dL (0.2)
--- NOTE | 2016-12-11 18:08 | NUR ---
PT AWARE OF PLANNED ADMISSION COMPLAINS OF SCRATCHY THROAT AND HUNGER, AWARE OF DIET ORDERED. AWAITING DIET ARRIVAL,
--- NOTE | 2016-12-11 19:30 | NUR ---
PATIENT ADMITTED FROM ER VIA STRETCHER WITH ER STAFF IN ATTENDANCE. PATIENT ASSISTED TO STANDING SCALE AND THEN TO BED. PATIENT IS AWAKE ALERT AND ORIENTEDX3. DENIES ANY CHEST PAIN AT THIS TIME. PATIENT WITH HEP LOCK TO LEFT WRIST-SITE APPEARS HEALTHY AT THIS TIME. PROVIDED WITH DINNER TRAY AND ATE VERY WELL. PATIENT ORIENTED TO ROOM AND SURROUNDINGS. SAFETY PRECAUTIONS REINFORCED WITH PATIENT. INSTRUCTED ON USE OF NURSE CALL LIGHT SYSTEM AND TV REMOTE. CALL LIGHT IN REACH. WILL CONT TO MONITOR.
--- NOTE | 2016-12-11 19:35 | NUR ---
PT TO RM 280 ON TELE WITH RN. REPORT GIVEN BY MATY BLEVINS TO AIDEN BLEVINS.
[2016-12-11 19:40] VITALS: BP 154/84
[2016-12-11 22:24] LABS: URINE MUCUS FEW hpf (NONE-FEW); URINE SQUAMOUS EPITHELIAL CELL FEW EPI/hpf (0-FEW)
[2016-12-11 23:58] VITALS: BP 127/75
--- NOTE | 2016-12-12 | NUR ---
PATIENT APPEARS SLEEPING AT THIS TIME-EYES CLOSED AT THIS TIME. CALL LIGHT IN REACH. WILL CONT TO MONITOR.
--- NOTE | 2016-12-12 04:07 | NUR ---
PATIENT APPEARS SLEEPING AT THIS TIME WITH EYES CLOSED. CALL LIGHT IN REACH. WILL CONT TO MONITOR.
[2016-12-12 04:33] VITALS: BP 147/92
[2016-12-12 05:57] LABS: HEMATOCRIT 35.8 % (39.0-50.0); HEMOGLOBIN 12.5 g/dl (14.0-18.0); MEAN CORPUSCULAR HGB 33.2 pG CALC (26.0-32.0); MEAN CORPUSCULAR HGB CONC 34.9 g/L CALC (32.0-36.0); RED BLOOD COUNT 3.77 mill/uL (4.70-6.10); RED CELL DISTRI WIDTH 12.4 % (11.5-15.5)
[2016-12-12 06:21] LABS: CREATININE 1.7 mg/dL (0.7-1.3); POTASSIUM 4.2 mmol/l (3.5-5.1)
[2016-12-12 06:28] LABS: INTERNATIONAL NORMALIZED RATIO 4.1 RATIO (0.7-1.3); PROTHROMBIN TIME 49.3 SECONDS (9.0-12.5)
--- NOTE | 2016-12-12 06:48 | NUR ---
DR. DAN NOTIFIED OF CRITICAL PT/INR-NO NEW ORDERS AT THIS TIME.
[2016-12-12 07:40] VITALS: BP 113/77
[2016-12-12 07:44] VITALS: BP 113/77
[2016-12-12 11:15] LABS: CHOLESTEROL HDL RATIO 3.2 (<4.4 (CALC))
--- NOTE | 2016-12-12 15:30 | NUR ---
Discharge instructions given. Patient verbalizes understanding of same. Discharged in stable condition via Wheelchair to Home with spouse. All belongings sent with pt.
== END 2016-12-12 15:35 | disposition home or self-care (01) ==
LOC: ED 13:43 → ED-I 15:50 → ED 16:20 → MS2 16:21
PROVIDERS: Emergency Medicine; Nurse Practitioner Family; ADMIT Internal Medicine; ATTEND Internal Medicine
DX: R07.2 Precordial pain (principal); R06.02 Shortness of breath; J44.9 Chronic obstructive pulmonary disease, unspecified; I12.9 Hypertensive chronic kidney disease with stage 1 through stage 4 chronic kidney disease, or unspecified chronic kidney disease; N18.3 Chronic kidney disease, stage 3 (moderate); I48.0 Paroxysmal atrial fibrillation; I25.10 Atherosclerotic heart disease of native coronary artery without angina pectoris; I25.2 Old myocardial infarction; N17.9 Acute kidney failure, unspecified; R79.1 Abnormal coagulation profile; T45.515A Adverse effect of anticoagulants, initial encounter; N40.0 Benign prostatic hyperplasia without lower urinary tract symptoms; Z87.891 Personal history of nicotine dependence; Z95.820 Peripheral vascular angioplasty status with implants and grafts; Z86.73 Personal history of transient ischemic attack (TIA), and cerebral infarction without residual deficits; Z95.1 Presence of aortocoronary bypass graft; Z91.14 Patient's other noncompliance with medication regimen
CPT/HCPCS: G0378

== ENCOUNTER 2017-07-19 09:14 | Emergency (ER) | payer MEDICARE, MEDICAID ==
[~2017-07-19] VITALS: Ht 170.2 cm; Wt 81.0 kg
[2017-07-19 09:48] VITALS: BP 171/117
== END 2017-07-19 10:09 | disposition home or self-care (01) ==
LOC: ED 09:14
DX: S81.811A Laceration without foreign body, right lower leg, initial encounter (principal); W22.09XA Striking against other stationary object, initial encounter; Y92.009 Unspecified place in unspecified non-institutional (private) residence as the place of occurrence of the external cause

== ENCOUNTER 2017-08-04 10:15 | Observation (INO) | payer MEDICARE, MEDICAID ==
[~2017-08-04] VITALS: Ht 170.2 cm; Wt 82.3 kg
[2017-08-04 11:06] LABS: HEMATOCRIT 35.1 % (39.0-50.0); HEMOGLOBIN 12.2 g/dl (14.0-18.0); IMMATURE GRANULOCYTES 0.7 % (0.0-1.0); MEAN CELL VOLUME 97.8 fL CALC (80.0-100.0); MEAN CORPUSCULAR HGB CONC 34.8 g/L CALC (32.0-36.0); NEUT# 5.04 thou/uL (1.82-7.42); RED BLOOD COUNT 3.59 mill/uL (4.70-6.10)
[2017-08-04 11:07] LABS: URINE BILIRUBIN - DIPSTICK NEGATIVE (NEGATIVE); URINE BLOOD DIPSTICK TRACE-INTACT (NEGATIVE); URINE CLARITY CLEAR; URINE COLOR YELLOW; URINE GLUCOSE - DIPSTICK NEGATIVE (NEGATIVE); URINE KETONE NEGATIVE (NEGATIVE); URINE LEUK ESTERASE NEGATIVE (NEGATIVE); URINE NITRITE - DIPSTICK NEGATIVE (Negative); URINE PH 5.5 (4.5-8.0); URINE PROTEIN - DIPSTICK 100 mg/dL (NEG-TRACE); URINE SPECIFIC GRAVITY 1.015; URINE UROBILINOGEN - DIPSTICK 0.2 E.U./dL (0.2)
[2017-08-04 11:15] LABS: URINE SQUAMOUS EPITHELIAL CELL FEW EPI/hpf (0-FEW)
[2017-08-04 11:18] LABS: INTERNATIONAL NORMALIZED RATIO 2.6 RATIO (0.7-1.3); PROTHROMBIN TIME 29.5 SECONDS (9.0-12.5)
[2017-08-04 11:19] LABS: ALBUMIN 3.6 g/dL (3.2-5.0); ALKALINE PHOSPHATASE 83 u/l (38-126); ANION GAP 15 (6-22 (CALC)); BILIRUBIN, TOTAL 0.6 mg/dL (0.0-1.4); BUN 21 mg/dL (8-23); BUN/CREATININE RATIO 17 (12-20 (CALC)); CARBON DIOXIDE 24 mmol/l (22-30); CHLORIDE 106 mmol/l (95-108); CREATININE 1.2 mg/dL (0.7-1.3); GFR 60 ML/MIN (>=60 (CALC)); GFR FOR AFR.AMER. > 60 ML/MIN (>=60 (CALC)); LIPASE 57 u/l (23-300); POTASSIUM 4.4 mmol/l (3.5-5.1); SGOT/AST 37 u/l (19-48); SGPT/ALT 48 u/l (11-66); SODIUM 140 mmol/l (137-146)
[2017-08-04 12:14] LABS: MAGNESIUM 1.9 mg/dL (1.6-2.3)
[2017-08-04 15:46] VITALS: BP 123/70
[2017-08-04] MEDS ORDERED: METOPROLOL SUCC25 MG PO (16:51)
[2017-08-04] MEDS ORDERED: AMIODARONE200 MG PO (16:52)
[2017-08-04] MEDS ORDERED: CARDIZEM CD 180 PO (16:53)
[2017-08-04] MEDS ORDERED: COUMADIN1 MG PO (16:53)
[2017-08-04] MEDS ORDERED: IPRATROPIU0.5 MG/3 M IN (16:54)
[2017-08-04] MEDS ORDERED: ISORDIL40 MG PO (16:55)
[2017-08-04] MEDS ORDERED: ISOSORBIDE DINI30 MG PO (16:55)
[2017-08-04] MEDS ORDERED: SPIRIVA RE1.25 MCG/A IN (16:57)
[2017-08-04] MEDS ORDERED: PROAIR HFA108 MCG/AC IN (16:57)
[2017-08-04] MEDS ORDERED: SYMBICORT1 AE1 IN (16:57)
[2017-08-04 19:00] VITALS: BP 98/62
[2017-08-04 23:00] VITALS: BP 119/83
[2017-08-05 04:00] VITALS: BP 125/95
[2017-08-05 06:28] LABS: HEMATOCRIT 32.4 % (39.0-50.0); HEMOGLOBIN 11.2 g/dl (14.0-18.0); MEAN CELL VOLUME 98.8 fL CALC (80.0-100.0); MEAN CORPUSCULAR HGB 34.1 pG CALC (26.0-32.0); MEAN CORPUSCULAR HGB CONC 34.6 g/L CALC (32.0-36.0); RED BLOOD COUNT 3.28 mill/uL (4.70-6.10)
[2017-08-05 06:39] LABS: INTERNATIONAL NORMALIZED RATIO 2.5 RATIO (0.7-1.3); PROTHROMBIN TIME 28.7 SECONDS (9.0-12.5)
[2017-08-05 06:45] LABS: ANION GAP 12 (6-22 (CALC)); BUN 22 mg/dL (8-23); BUN/CREATININE RATIO 18 (12-20 (CALC)); CALCULATED LDLCHOLESTEROL 102 mg/dL (62-129 (CALC)); CARBON DIOXIDE 27 mmol/l (22-30); CHLORIDE 105 mmol/l (95-108); CHOLESTEROL HDL RATIO 2.7 (<4.4 (CALC)); CREATININE 1.2 mg/dL (0.7-1.3); GFR 60 ML/MIN (>=60 (CALC)); GFR FOR AFR.AMER. > 60 ML/MIN (>=60 (CALC)); HDL CHOLESTEROL 67 mg/dL (>=40); POTASSIUM 4.4 mmol/l (3.5-5.1); SODIUM 140 mmol/l (137-146); TOTAL CHOLESTEROL 179 mg/dl (0-199); TOTAL TRIGLYCERIDES 49 mg/dl (30-149); VLDL CHOLESTROL 10 mg/dl (0-38 (CALC))
[2017-08-05 08:17] VITALS: BP 122/73
[2017-08-05 11:28] VITALS: BP 110/72
[2017-08-05 12:58] VITALS: BP 101/71
[2017-08-05 15:08] VITALS: BP 133/92
== END 2017-08-05 15:39 | disposition home health service (06) ==
LOC: ED 10:15 → ED-I 14:24 → ED 14:59 → MS2 15:00
PROVIDERS: Nurse Practitioner Family; ADMIT Internal Medicine; ATTEND Internal Medicine
DX: R07.9 Chest pain, unspecified (principal); R55 Syncope and collapse; I25.10 Atherosclerotic heart disease of native coronary artery without angina pectoris; J44.9 Chronic obstructive pulmonary disease, unspecified; I48.0 Paroxysmal atrial fibrillation; E78.5 Hyperlipidemia, unspecified; I12.9 Hypertensive chronic kidney disease with stage 1 through stage 4 chronic kidney disease, or unspecified chronic kidney disease; N18.2 Chronic kidney disease, stage 2 (mild); N40.0 Benign prostatic hyperplasia without lower urinary tract symptoms; Z87.891 Personal history of nicotine dependence; Z95.820 Peripheral vascular angioplasty status with implants and grafts; Z79.01 Long term (current) use of anticoagulants; Z86.73 Personal history of transient ischemic attack (TIA), and cerebral infarction without residual deficits; Z95.1 Presence of aortocoronary bypass graft
CPT/HCPCS: Q9967

== ENCOUNTER 2017-08-15 17:56 | Observation (INO) | payer MEDICARE, MEDICAID ==
[~2017-08-15] VITALS: Ht 170.2 cm; Wt 100.0 kg
[~2017-08-15 17:56] MED LIST changes: +CARDIZEM CD 180 PO; +COUMADIN1 MG PO; +ISOSORBIDE DINI30 MG PO; +METOPROLOL SUCC25 MG PO; +SPIRIVA RE1.25 MCG/A IN
[2017-08-15 18:52] LABS: HEMATOCRIT 37.3 % (39.0-50.0); HEMOGLOBIN 12.6 g/dl (14.0-18.0); IMMATURE GRANULOCYTES 0.8 % (0.0-1.0); MEAN CELL VOLUME 99.7 fL CALC (80.0-100.0); MEAN CORPUSCULAR HGB 33.7 pG CALC (26.0-32.0); MEAN CORPUSCULAR HGB CONC 33.8 g/L CALC (32.0-36.0); NEUT# 5.15 thou/uL (1.82-7.42); RED BLOOD COUNT 3.74 mill/uL (4.70-6.10); RED CELL DISTRI WIDTH 13.2 % (11.5-15.5)
[2017-08-15 19:08] LABS: INTERNATIONAL NORMALIZED RATIO 1.8 RATIO (0.7-1.3); PROTHROMBIN TIME 20.5 SECONDS (9.0-12.5)
[2017-08-15 19:10] LABS: ALKALINE PHOSPHATASE 82 u/l (38-126); AMYLASE 79 u/l (30-110); BILIRUBIN, TOTAL 0.9 mg/dL (0.0-1.4); BUN 25 mg/dL (8-23); BUN/CREATININE RATIO 19 (12-20 (CALC)); CARBON DIOXIDE 23 mmol/l (22-30); CHLORIDE 105 mmol/l (95-108); CREATININE 1.3 mg/dL (0.7-1.3); GFR 54 ML/MIN (>=60 (CALC)); GFR FOR AFR.AMER. > 60 ML/MIN (>=60 (CALC)); LIPASE 59 u/l (23-300); SGOT/AST 55 u/l (19-48); SGPT/ALT 44 u/l (11-66); SODIUM 138 mmol/l (137-146)
[2017-08-15 19:12] LABS: ANION GAP 15 (6-22 (CALC)); POTASSIUM 5.4 mmol/l (3.5-5.1)
[2017-08-15 19:22] LABS: MYOGLOBIN 70 ng/mL (0 - 121)
[2017-08-15 20:44] VITALS: BP 136/52
[2017-08-15 22:00] VITALS: BP 100/63
[2017-08-16 04:20] VITALS: BP 120/84
[2017-08-16 06:59] LABS: MEAN CELL VOLUME 98.7 fL CALC (80.0-100.0); MEAN CORPUSCULAR HGB CONC 34.4 g/L CALC (32.0-36.0); RED BLOOD COUNT 3.09 mill/uL (4.70-6.10); RED CELL DISTRI WIDTH 13.1 % (11.5-15.5)
[2017-08-16 07:05] LABS: ALKALINE PHOSPHATASE 71 u/l (38-126); ANION GAP 12 (6-22 (CALC)); BILIRUBIN, TOTAL 0.5 mg/dL (0.0-1.4); BUN 23 mg/dL (8-23); BUN/CREATININE RATIO 20 (12-20 (CALC)); CARBON DIOXIDE 23 mmol/l (22-30); CHLORIDE 109 mmol/l (95-108); CREATININE 1.1 mg/dL (0.7-1.3); GFR > 60 ML/MIN (>=60 (CALC)); GFR FOR AFR.AMER. > 60 ML/MIN (>=60 (CALC)); POTASSIUM 4.4 mmol/l (3.5-5.1); SGOT/AST 29 u/l (19-48); SGPT/ALT 40 u/l (11-66); SODIUM 139 mmol/l (137-146)
[2017-08-16 07:11] LABS: ALBUMIN 2.7 g/dL (3.2-5.0)
[2017-08-16 07:20] LABS: HEMATOCRIT 30.5 % (39.0-50.0); HEMOGLOBIN 10.5 g/dl (14.0-18.0)
[2017-08-16 07:26] VITALS: BP 123/82
[2017-08-16 11:31] LABS: URINE BILIRUBIN - DIPSTICK NEGATIVE (NEGATIVE); URINE BLOOD DIPSTICK NEGATIVE (NEGATIVE); URINE COLOR YELLOW; URINE GLUCOSE - DIPSTICK NEGATIVE (NEGATIVE); URINE KETONE NEGATIVE (NEGATIVE); URINE LEUK ESTERASE NEGATIVE (NEGATIVE); URINE NITRITE - DIPSTICK NEGATIVE (Negative); URINE PROTEIN - DIPSTICK 100 mg/dL (NEG-TRACE); URINE UROBILINOGEN - DIPSTICK 0.2 E.U./dL (0.2)
[2017-08-16 11:32] LABS: URINE CLARITY CLEAR
[2017-08-16 11:37] VITALS: BP 120/81
[2017-08-16 11:49] LABS: URINE HYALINE CAST FEW lpf (NONE-RARE); URINE RBC 0-2 RBC/hpf (0-5); URINE WBC 0-2 WBC/hpf (0-5)
[2017-08-16 13:13] VITALS: BP 120/81
[2017-08-16] MEDS ORDERED: METOPROLOL SUCC25 MG PO (15:50)
== END 2017-08-16 16:40 | disposition home health service (06) ==
LOC: ED 17:56 → ED-I 19:40 → ED 20:01 → MS2 20:02
PROVIDERS: Emergency Medicine; Nurse Practitioner Family; ADMIT Internal Medicine; ATTEND Internal Medicine
DX: I25.119 Atherosclerotic heart disease of native coronary artery with unspecified angina pectoris (principal); I13.0 Hypertensive heart and chronic kidney disease with heart failure and stage 1 through stage 4 chronic kidney disease, or unspecified chronic kidney disease; I50.9 Heart failure, unspecified; N18.3 Chronic kidney disease, stage 3 (moderate); J44.9 Chronic obstructive pulmonary disease, unspecified; J96.10 Chronic respiratory failure, unspecified whether with hypoxia or hypercapnia; E78.5 Hyperlipidemia, unspecified; I48.0 Paroxysmal atrial fibrillation; N40.0 Benign prostatic hyperplasia without lower urinary tract symptoms; D64.9 Anemia, unspecified; I25.2 Old myocardial infarction; Z79.01 Long term (current) use of anticoagulants; Z95.1 Presence of aortocoronary bypass graft; Z86.73 Personal history of transient ischemic attack (TIA), and cerebral infarction without residual deficits; Z95.820 Peripheral vascular angioplasty status with implants and grafts; Z91.14 Patient's other noncompliance with medication regimen; Z87.891 Personal history of nicotine dependence
CPT/HCPCS: G0328

== ENCOUNTER 2017-09-11 13:42 | Emergency (ER) | payer MEDICARE, MEDICAID ==
[~2017-09-11] VITALS: Ht 170.2 cm; Wt 82.0 kg
[2017-09-11 14:32] LABS: HEMATOCRIT 31.8 % (39.0-50.0); HEMOGLOBIN 10.9 g/dl (14.0-18.0); IMMATURE GRANULOCYTES 0.7 % (0.0-1.0); MEAN CELL VOLUME 99.1 fL CALC (80.0-100.0); MEAN CORPUSCULAR HGB CONC 34.3 g/L CALC (32.0-36.0); NEUT# 4.17 thou/uL (1.82-7.42); RED BLOOD COUNT 3.21 mill/uL (4.70-6.10)
[2017-09-11] MEDS ORDERED: METO50TA52 PO (14:37)
[2017-09-11] MEDS ORDERED: ELIQUIS5 MG PO (14:39)
[2017-09-11 14:46] LABS: ALKALINE PHOSPHATASE 79 u/l (38-126); ANION GAP 10 (6-22 (CALC)); BILIRUBIN, TOTAL 0.6 mg/dL (0.0-1.4); BUN 17 mg/dL (8-23); BUN/CREATININE RATIO 13 (12-20 (CALC)); CARBON DIOXIDE 22 mmol/l (22-30); CHLORIDE 111 mmol/l (95-108); CREATININE 1.3 mg/dL (0.7-1.3); GFR 54 ML/MIN (>=60 (CALC)); GFR FOR AFR.AMER. > 60 ML/MIN (>=60 (CALC)); POTASSIUM 4.6 mmol/l (3.5-5.1); SGOT/AST 35 u/l (19-48); SGPT/ALT 41 u/l (11-66); SODIUM 138 mmol/l (137-146)
[2017-09-11 14:53] LABS: ALBUMIN 3.4 g/dL (3.2-5.0); TOTAL PROTEIN 6.2 g/dL (6.3-8.2)
[2017-09-11] MEDS ORDERED: ANTIVERT PO (17:39)
[2017-09-11 18:08] VITALS: BP 150/90
== END 2017-09-11 18:10 | disposition home or self-care (01) ==
LOC: ED 13:42
PROVIDERS: Emergency Medicine
DX: R42 Dizziness and giddiness (principal); R10.31 Right lower quadrant pain; R11.0 Nausea; I25.10 Atherosclerotic heart disease of native coronary artery without angina pectoris; I10 Essential (primary) hypertension; I25.2 Old myocardial infarction; J44.9 Chronic obstructive pulmonary disease, unspecified; I48.91 Unspecified atrial fibrillation; I12.9 Hypertensive chronic kidney disease with stage 1 through stage 4 chronic kidney disease, or unspecified chronic kidney disease; N18.2 Chronic kidney disease, stage 2 (mild); Z86.73 Personal history of transient ischemic attack (TIA), and cerebral infarction without residual deficits; Z95.1 Presence of aortocoronary bypass graft; R94.31 Abnormal electrocardiogram [ECG] [EKG]
CPT/HCPCS: Q9967

== ENCOUNTER 2018-01-28 10:28 | Observation (INO) | payer MEDICARE, MEDICAID ==
[~2018-01-28] VITALS: Ht 170.2 cm; Wt 85.4 kg
[~2018-01-28 10:28] MED LIST changes: +ANTIVERT PO; +ELIQUIS5 MG PO; +NAPROSYN500 MG PO; +TRAMADOL HYDROC50 MG PO
[2018-01-28 11:24] LABS: IMMATURE GRANULOCYTES 0.6 % (0.0-5.0); MEAN CELL VOLUME 101.1 fL CALC (80.0-100.0); MEAN CORPUSCULAR HGB 33.7 pG CALC (26.0-32.0); MEAN CORPUSCULAR HGB CONC 33.3 g/L CALC (32.0-36.0); NEUT# 4.75 thou/uL (1.82-7.42); RED BLOOD COUNT 2.79 mill/uL (4.70-6.10); RED CELL DISTRI WIDTH 12.7 % (11.5-15.5)
[2018-01-28 11:30] LABS: HEMATOCRIT 28.2 % (39.0-50.0); HEMOGLOBIN 9.4 g/dl (14.0-18.0)
[2018-01-28 11:43] LABS: ALBUMIN 3.5 g/dL (3.2-5.0); ALKALINE PHOSPHATASE 80 u/l (38-126); ANION GAP 11 (6-22 (CALC)); BILIRUBIN, TOTAL 0.6 mg/dL (0.0-1.4); BUN 21 mg/dL (8-23); BUN/CREATININE RATIO 17 (12-20 (CALC)); CARBON DIOXIDE 26 mmol/l (22-30); CHLORIDE 110 mmol/l (95-108); CREATININE 1.2 mg/dL (0.7-1.3); GFR 60 ML/MIN (>=60 (CALC)); GFR FOR AFR.AMER. > 60 ML/MIN (>=60 (CALC)); MAGNESIUM 2.2 mg/dL (1.6-2.3); POTASSIUM 5.1 mmol/l (3.5-5.1); SGOT/AST 31 u/l (19-48); SODIUM 142 mmol/l (137-146); TOTAL PROTEIN 6.1 g/dL (6.3-8.2)
[2018-01-28 11:54] LABS: MYOGLOBIN 67 ng/mL (0 - 121)
[2018-01-28] MEDS ORDERED: CEFUROXIME AXE500 MG PO (12:04)
[2018-01-28] MEDS ORDERED: BUMETANIDE1 MG PO (12:06)
[2018-01-28] MEDS ORDERED: CENTRUM SILVER1 TA2 PO (12:07)
[2018-01-28 14:00] VITALS: BP 138/83
[2018-01-28 15:00] VITALS: BP 130/83
[2018-01-28 15:05] VITALS: BP 129/74
[2018-01-28 15:10] VITALS: BP 132/74
[2018-01-28 16:45] VITALS: BP 106/67
[2018-01-28 20:00] VITALS: BP 89/47
[2018-01-29] VITALS (7 sets, daily range): BP systolic 114–149; BP diastolic 74–96
[2018-01-29 05:34] LABS: HEMATOCRIT 25.6 % (39.0-50.0); HEMOGLOBIN 8.5 g/dl (14.0-18.0); IMMATURE GRANULOCYTES 0.6 % (0.0-5.0); MEAN CELL VOLUME 101.6 fL CALC (80.0-100.0); MEAN CORPUSCULAR HGB 33.7 pG CALC (26.0-32.0); MEAN CORPUSCULAR HGB CONC 33.2 g/L CALC (32.0-36.0); NEUT# 4.47 thou/uL (1.82-7.42); RED BLOOD COUNT 2.52 mill/uL (4.70-6.10); RED CELL DISTRI WIDTH 12.8 % (11.5-15.5)
[2018-01-29 05:46] LABS: BILIRUBIN, TOTAL 0.5 mg/dL (0.0-1.4); CREATININE 1.4 mg/dL (0.7-1.3); MAGNESIUM 2.2 mg/dL (1.6-2.3)
== END 2018-01-29 21:00 ==
LOC: ED 10:28 → ED-I 13:11 → ED 13:17 → MS2 13:18
PROVIDERS: Family Medicine; ADMIT Internal Medicine Nephrology; ATTEND Internal Medicine Nephrology
DX: R55 Syncope and collapse (principal); R42 Dizziness and giddiness; H53.8 Other visual disturbances; R25.1 Tremor, unspecified; R19.5 Other fecal abnormalities; I13.0 Hypertensive heart and chronic kidney disease with heart failure and stage 1 through stage 4 chronic kidney disease, or unspecified chronic kidney disease; I50.9 Heart failure, unspecified; N18.3 Chronic kidney disease, stage 3 (moderate); J44.9 Chronic obstructive pulmonary disease, unspecified; I25.119 Atherosclerotic heart disease of native coronary artery with unspecified angina pectoris; I48.0 Paroxysmal atrial fibrillation; N40.0 Benign prostatic hyperplasia without lower urinary tract symptoms; D64.9 Anemia, unspecified; J96.10 Chronic respiratory failure, unspecified whether with hypoxia or hypercapnia; E78.5 Hyperlipidemia, unspecified; I73.9 Peripheral vascular disease, unspecified; I25.2 Old myocardial infarction; Z95.820 Peripheral vascular angioplasty status with implants and grafts; Z99.81 Dependence on supplemental oxygen; Z79.01 Long term (current) use of anticoagulants; Z86.73 Personal history of transient ischemic attack (TIA), and cerebral infarction without residual deficits; Z87.891 Personal history of nicotine dependence; Z95.1 Presence of aortocoronary bypass graft; Z91.120 Patient's intentional underdosing of medication regimen due to financial hardship; Z82.0 Family history of epilepsy and other diseases of the nervous system
CPT/HCPCS: G0328

== ENCOUNTER 2018-02-04 12:32 | Observation (INO) | payer MEDICARE, MEDICAID ==
[~2018-02-04] VITALS: Ht 170.2 cm; Wt 85.0 kg
[~2018-02-04 12:32] MED LIST changes: +CEFUROXIME AXE500 MG PO; +CENTRUM SILVER1 TA2 PO
[2018-02-04 13:12] LABS: HEMATOCRIT 26.4 % (39.0-50.0); HEMOGLOBIN 8.9 g/dl (14.0-18.0); IMMATURE GRANULOCYTES 0.5 % (0.0-5.0); MEAN CELL VOLUME 99.2 fL CALC (80.0-100.0); MEAN CORPUSCULAR HGB 33.5 pG CALC (26.0-32.0); MEAN CORPUSCULAR HGB CONC 33.7 g/L CALC (32.0-36.0); NEUT# 6.36 thou/uL (1.82-7.42); RED BLOOD COUNT 2.66 mill/uL (4.70-6.10); RED CELL DISTRI WIDTH 12.6 % (11.5-15.5)
[2018-02-04] MEDS ORDERED: KLOR-CON 1010 MEQ PO (13:12)
[2018-02-04] MEDS ORDERED: SYMBICORT1 AE1 IN (13:14)
[2018-02-04 13:26] LABS: ALBUMIN 3.1 g/dL (3.2-5.0); ALKALINE PHOSPHATASE 87 u/l (38-126); ANION GAP 12 (6-22 (CALC)); BILIRUBIN, TOTAL 0.7 mg/dL (0.0-1.4); BUN 17 mg/dL (8-23); BUN/CREATININE RATIO 14 (12-20 (CALC)); CARBON DIOXIDE 24 mmol/l (22-30); CHLORIDE 107 mmol/l (95-108); CREATININE 1.3 mg/dL (0.7-1.3); GFR 54 ML/MIN (>=60 (CALC)); GFR FOR AFR.AMER. > 60 ML/MIN (>=60 (CALC)); POTASSIUM 4.5 mmol/l (3.5-5.1); SGOT/AST 30 u/l (19-48); SODIUM 138 mmol/l (137-146); TOTAL PROTEIN 5.6 g/dL (6.3-8.2)
[2018-02-04 13:32] LABS: PROTHROMBIN TIME 10.3 SECONDS (9.0-12.5)
[2018-02-04 16:30] VITALS: BP 163/84
[2018-02-04 16:45] VITALS: BP 144/86
[2018-02-04 17:00] VITALS: BP 143/101
[2018-02-04 17:45] VITALS: BP 133/97
[2018-02-04 19:05] VITALS: BP 111/69
[2018-02-05 00:08] VITALS: BP 106/57
[2018-02-05 04:26] VITALS: BP 120/78
[2018-02-05 05:16] LABS: HEMATOCRIT 24.9 % (39.0-50.0); HEMOGLOBIN 8.4 g/dl (14.0-18.0); IMMATURE GRANULOCYTES 0.5 % (0.0-5.0); MEAN CELL VOLUME 100.4 fL CALC (80.0-100.0); MEAN CORPUSCULAR HGB 33.9 pG CALC (26.0-32.0); MEAN CORPUSCULAR HGB CONC 33.7 g/L CALC (32.0-36.0); NEUT# 3.89 thou/uL (1.82-7.42); RED BLOOD COUNT 2.48 mill/uL (4.70-6.10); RED CELL DISTRI WIDTH 12.5 % (11.5-15.5)
[2018-02-05 05:28] LABS: ALBUMIN 2.9 g/dL (3.2-5.0); ALKALINE PHOSPHATASE 81 u/l (38-126); ANION GAP 10 (6-22 (CALC)); BILIRUBIN, TOTAL 0.5 mg/dL (0.0-1.4); BUN 20 mg/dL (8-23); BUN/CREATININE RATIO 15 (12-20 (CALC)); CARBON DIOXIDE 25 mmol/l (22-30); CHLORIDE 109 mmol/l (95-108); CREATININE 1.3 mg/dL (0.7-1.3); GFR 54 ML/MIN (>=60 (CALC)); GFR FOR AFR.AMER. > 60 ML/MIN (>=60 (CALC)); MAGNESIUM 1.9 mg/dL (1.6-2.3); POTASSIUM 4.9 mmol/l (3.5-5.1); SGOT/AST 28 u/l (19-48); SODIUM 139 mmol/l (137-146)
[2018-02-05 05:54] LABS: URINE BILIRUBIN - DIPSTICK NEGATIVE (NEGATIVE); URINE BLOOD DIPSTICK NEGATIVE (NEGATIVE); URINE COLOR YELLOW; URINE GLUCOSE - DIPSTICK NEGATIVE (NEGATIVE); URINE KETONE NEGATIVE (NEGATIVE); URINE LEUK ESTERASE NEGATIVE (Negative); URINE NITRITE - DIPSTICK NEGATIVE (Negative); URINE PH 6.5 (4.5-8.0); URINE PROTEIN - DIPSTICK 30 mg/dL (NEG-TRACE); URINE SPECIFIC GRAVITY 1.015; URINE UROBILINOGEN - DIPSTICK 0.2 E.U./dL (0.2)
[2018-02-05 06:00] LABS: URINE CLARITY CLEAR
[2018-02-05 06:06] LABS: URINE BACTERIA RARE hpf; URINE RBC 0-2 RBC/hpf (0-5); URINE SQUAMOUS EPITHELIAL CELL RARE EPI/hpf (0-FEW); URINE WBC 0-2 WBC/hpf (0-5)
[2018-02-05 08:35] VITALS: BP 99/72
[2018-02-05 11:35] VITALS: BP 99/62
== END 2018-02-05 13:30 | disposition home or self-care (01) ==
LOC: ED 12:32 → ED-I 12:52 → ED 15:40 → ICU 15:41 → MS2 15:41 → ICU 15:41 → MS2 19:04
PROVIDERS: Emergency Medicine; ADMIT Internal Medicine Nephrology; ATTEND Internal Medicine Nephrology
DX: T44.7X1A Poisoning by beta-adrenoreceptor antagonists, accidental (unintentional), initial encounter (principal); T46.6X1A Poisoning by antihyperlipidemic and antiarteriosclerotic drugs, accidental (unintentional), initial encounter; T50.1X1A Poisoning by loop [high-ceiling] diuretics, accidental (unintentional), initial encounter; T39.011A Poisoning by aspirin, accidental (unintentional), initial encounter; I95.2 Hypotension due to drugs; I48.2 Chronic atrial fibrillation; I13.0 Hypertensive heart and chronic kidney disease with heart failure and stage 1 through stage 4 chronic kidney disease, or unspecified chronic kidney disease; N18.2 Chronic kidney disease, stage 2 (mild); I50.9 Heart failure, unspecified; D64.9 Anemia, unspecified; I25.10 Atherosclerotic heart disease of native coronary artery without angina pectoris; J44.9 Chronic obstructive pulmonary disease, unspecified; I25.2 Old myocardial infarction; Z86.73 Personal history of transient ischemic attack (TIA), and cerebral infarction without residual deficits; Z95.1 Presence of aortocoronary bypass graft; Z79.01 Long term (current) use of anticoagulants; Z87.891 Personal history of nicotine dependence; R07.9 Chest pain, unspecified; R11.2 Nausea with vomiting, unspecified
CPT/HCPCS: J2060; S0164

== ENCOUNTER 2018-08-03 22:48 | Emergency (ER) | payer MEDICARE ==
[~2018-08-03] VITALS: Ht 170.2 cm; Wt 86.6 kg
[~2018-08-03 22:48] MED LIST changes: +KLOR-CON 1010 MEQ PO
[2018-08-03 23:33] LABS: HEMATOCRIT 36.2 % (39.0-50.0); HEMOGLOBIN 12.3 g/dl (14.0-18.0); NEUT# 7.95 thou/uL (1.82-7.42); RED BLOOD COUNT 3.62 mill/uL (4.70-6.10); RED CELL DISTRI WIDTH 13.2 % (11.5-15.5)
[2018-08-03 23:49] LABS: ALBUMIN 3.7 g/dL (3.2-5.0); ALKALINE PHOSPHATASE 97 u/l (38-126); ANION GAP 13 (6-22 (CALC)); BILIRUBIN, TOTAL 0.8 mg/dL (0.0-1.4); BUN 22 mg/dL (8-23); BUN/CREATININE RATIO 19 (12-20 (CALC)); CARBON DIOXIDE 21 mmol/l (22-30); CHLORIDE 108 mmol/l (95-108); CREATININE 1.1 mg/dL (0.7-1.3); GFR > 60 ML/MIN (>=60 (CALC)); GFR FOR AFR.AMER. > 60 ML/MIN (>=60 (CALC)); POTASSIUM 4.7 mmol/l (3.5-5.1); SGOT/AST 32 u/l (19-48); SODIUM 137 mmol/l (137-146); TOTAL PROTEIN 6.1 g/dL (6.3-8.2)
[2018-08-04 02:07] VITALS: BP 114/70
== END 2018-08-04 02:05 | disposition home or self-care (01) ==
LOC: ED 22:48
PROVIDERS: Emergency Medicine
DX: J44.1 Chronic obstructive pulmonary disease with (acute) exacerbation (principal); R07.89 Other chest pain; R06.02 Shortness of breath; R07.1 Chest pain on breathing; Z86.73 Personal history of transient ischemic attack (TIA), and cerebral infarction without residual deficits; I10 Essential (primary) hypertension; I25.2 Old myocardial infarction

== ENCOUNTER 2018-09-04 16:41 | Emergency (ER) | payer MEDICARE, MEDICAID ==
[~2018-09-04] VITALS: Ht 170.2 cm; Wt 85.0 kg
[2018-09-04] MEDS ORDERED: DILTIAZEM240 MG PO (17:04)
[2018-09-04] MEDS ORDERED: NORCO1 TA1 PO (17:05)
[2018-09-04] MEDS ORDERED: NAPROXEN250 MG PO (17:06)
[2018-09-04] MEDS ORDERED: MECLIZINE25 MG PO (17:06)
[2018-09-04] MEDS ORDERED: NITROGLYCER0.4 MG/HR TD (17:07)
[2018-09-04] MEDS ORDERED: SERTRALINE HCL50 MG PO (17:08)
[2018-09-04 17:39] LABS: HEMATOCRIT 34.3 % (39.0-50.0); HEMOGLOBIN 11.5 g/dl (14.0-18.0); IMMATURE GRANULOCYTES 0.9 % (0.0-5.0); MEAN CELL VOLUME 99.7 fL CALC (80.0-100.0); MEAN CORPUSCULAR HGB 33.4 pG CALC (26.0-32.0); MEAN CORPUSCULAR HGB CONC 33.5 g/L CALC (32.0-36.0); NEUT# 5.13 thou/uL (1.82-7.42); RED BLOOD COUNT 3.44 mill/uL (4.70-6.10); RED CELL DISTRI WIDTH 12.9 % (11.5-15.5)
[2018-09-04 17:57] LABS: ANION GAP 14 (6-22 (CALC)); BUN 22 mg/dL (8-23); BUN/CREATININE RATIO 15 (12-20 (CALC)); CARBON DIOXIDE 21 mmol/l (22-30); CHLORIDE 110 mmol/l (95-108); CREATININE 1.5 mg/dL (0.7-1.3); GFR 46 ML/MIN (>=60 (CALC)); GFR FOR AFR.AMER. 56 ML/MIN (>=60 (CALC)); POTASSIUM 4.4 mmol/l (3.5-5.1); SODIUM 140 mmol/l (137-146)
[2018-09-04 19:02] VITALS: BP 122/72
== END 2018-09-04 19:03 | disposition left against medical advice (07) ==
LOC: ED 16:41
PROVIDERS: Family Medicine
DX: R07.9 Chest pain, unspecified (principal); Z91.19 Patient's noncompliance with other medical treatment and regimen; R94.31 Abnormal electrocardiogram [ECG] [EKG]; R06.02 Shortness of breath; I48.91 Unspecified atrial fibrillation

== ENCOUNTER 2018-10-04 11:51 | Observation (INO) | payer MEDICARE ==
[~2018-10-04] VITALS: Ht 170.2 cm; Wt 82.8 kg
[~2018-10-04 11:51] MED LIST changes: +DILTIAZEM240 MG PO; +MECLIZINE25 MG PO; +NAPROXEN250 MG PO; +NORCO1 TA1 PO; +SERTRALINE HCL50 MG PO
--- NOTE | 2018-10-04 11:59 | NUR ---
PT AMBUALTED TO ROOM FOR BEDSIDE TRIAGE.
[2018-10-04] MEDS ORDERED: CEFUROXIME250 MG PO (12:27)
[2018-10-04 12:30] LABS: HEMOGLOBIN 12.5 g/dl (14.0-18.0); IMMATURE GRANULOCYTES 0.9 % (0.0-5.0); MEAN CELL VOLUME 99.2 fL CALC (80.0-100.0); MEAN CORPUSCULAR HGB 33.5 pG CALC (26.0-32.0); MEAN CORPUSCULAR HGB CONC 33.8 g/L CALC (32.0-36.0); NEUT# 6.22 thou/uL (1.82-7.42); RED BLOOD COUNT 3.73 mill/uL (4.70-6.10); RED CELL DISTRI WIDTH 12.4 % (11.5-15.5)
--- NOTE | 2018-10-04 12:30 | NUR ---
PATIENT REPORTS HAVING LEFT SIDED CHEST PAIN STARTING ON 10/01/18 WHILE DOING PHYSICAL THERAPY FOR HIS LEFT SOULDER. CHEST PAIN IN ON ONGOING. RATES 8/10, NO RADIATING. STATES HAVING TAKING TWO HOME NITRO SL THIS AM WITH NO RELIEF. LUNG SOUNDS DEMINISHED TO BILATERAL LOWER LOBES. AT BEDSIDE. MED REC COMPLETED FROM MED LIST PROVIDED. CALL LIGHT WITHIN REACH.
[2018-10-04] MEDS ORDERED: FLONASE SE27.5 MCG/S NAB (12:32)
[2018-10-04 12:47] LABS: ANION GAP 14 (6-22 (CALC)); BUN 21 mg/dL (8-23); BUN/CREATININE RATIO 17 (12-20 (CALC)); CARBON DIOXIDE 23 mmol/l (22-30); CHLORIDE 106 mmol/l (95-108); CREATININE 1.2 mg/dL (0.7-1.3); GFR 59 ML/MIN (>=60 (CALC)); GFR FOR AFR.AMER. > 60 ML/MIN (>=60 (CALC)); POTASSIUM 4.6 mmol/l (3.5-5.1); SODIUM 139 mmol/l (137-146)
--- NOTE | 2018-10-04 13:26 | NUR ---
ASSUMED CARE PATIENT RESTING AWAITNG LAB AND RADIOLOGY RESULTS
--- NOTE | 2018-10-04 13:27 | NUR ---
REPORT GIVEN TO FELICITY GRAF. 1 SL NITRO GIVEN. PATIENT CARE RELINQUISHED.
--- NOTE | 2018-10-04 14:20 | NUR ---
PATIENT RESTING AWAITING DISPOSITION DENIES ANY CHEST PAIN AT THIS TIME
--- NOTE | 2018-10-04 14:58 | NUR ---
PATIENT RESTING. REPORT CALLED TO KRISH IN MED SURG. PATIENT AWAITING ADMISSION ORDERS
--- NOTE | 2018-10-04 15:05 | NUR ---
PATIENT TRANSPORTED TO [facility]
[2018-10-04 15:30] VITALS: BP 145/95
--- NOTE | 2018-10-04 15:30 | NUR ---
ASSESSMENT IS COMPLETED: IV SITE IS FREE FROM REDNESS OR EDEMA. HR IS REG,PULSES ARE STRONG X4, ABD IS SOFT WITH ACTIVE BS. BREATH SOUNDS ARE CLEAR.,BILATERALLY., PT HAS A GROWTH ON HIS MIDSTERNAL CHEST AREA. PER PT AND " IT COMES AND DISAPPEARS THEN COMES AGAIN GETS BIGGER AND GOES AWAY AGAIN" CONTINUE TO OSBERVE AND MONITOR.
[2018-10-04 17:05] VITALS: BP 138/76
[2018-10-04 19:30] VITALS: BP 132/84
--- NOTE | 2018-10-04 20:12 | NUR ---
Patient resting in bed. No complaints of pain. V/S wnl. Breath sounds clear. Abdomen soft with active bowel sounds. No S&S of distress. Will continue to monitor patient progress.
[2018-10-05] VITALS: BP 131/79
--- NOTE | 2018-10-05 00:15 | NUR ---
Patient resting in bed. Patient complains of pain in chest wall from coughing. Patient given tylenol. Patient tolerated well. No S&S of distress. No change in previous assessment. Will continue to monitor patient progress.
[2018-10-05 04:05] VITALS: BP 125/76
--- NOTE | 2018-10-05 04:16 | NUR ---
Patient resting in bed. No complaints of pain. No S&S of distress. No change in previous assessment. Will continue to monitor patient progress.
[2018-10-05 06:38] LABS: CHOLESTEROL HDL RATIO 2.9 (<4.4 (CALC)); MAGNESIUM 2.1 mg/dL (1.6-2.3)
[2018-10-05 07:55] VITALS: BP 156/88
--- NOTE | 2018-10-05 07:55 | NUR ---
ASSESSMENT IS COMPLETED: IV SITE IS FREE FROM REDNESS OR EDEMA. HR IS REG,PULSES ARE STRONG X4, ABD IS SOFT WITH ACTIVE BS. BREATH SOUDNS ARE CLEAR,BILATERALLY. TELE MONITOR IN PLACE. PT C/O THE LEFT ARM STILL HURTING WITH SOME SOB DUE TO COPD.
[2018-10-05 11:03] VITALS: BP 140/76
--- NOTE | 2018-10-05 12:00 | NUR ---
PT IS RELAXING IN BED FAMILY IN THE ROOM. IV SITE IS FREE FROM REDNESS OR EDEMA.
--- NOTE | 2018-10-05 13:40 | NUR ---
IV SITE DISCONTINEUD CATHETER INTACT NO REDNESS OR EDEMA. DISCHARGE INSTRUCTIONS GIVEN AND VERBALLY UNDERSTOOD. FAMILY IN THE ROOM. Discharge instructions given. Patient verbalizes understanding of same. Discharged in stable condition via Wheelchair to Home with family. All belongings sent with pt.
== END 2018-10-05 13:40 | disposition home or self-care (01) ==
LOC: ED 11:51 → ED-I 12:51 → ED 12:51 → ED-I 13:31 → ED 14:36 → MS2 14:37
PROVIDERS: Family Medicine; ADMIT Internal Medicine; ATTEND Internal Medicine
DX: M94.0 Chondrocostal junction syndrome [Tietze] (principal); I25.10 Atherosclerotic heart disease of native coronary artery without angina pectoris; I12.9 Hypertensive chronic kidney disease with stage 1 through stage 4 chronic kidney disease, or unspecified chronic kidney disease; N18.2 Chronic kidney disease, stage 2 (mild); J43.9 Emphysema, unspecified; I48.0 Paroxysmal atrial fibrillation; E78.5 Hyperlipidemia, unspecified; L98.9 Disorder of the skin and subcutaneous tissue, unspecified; I25.2 Old myocardial infarction; Z95.1 Presence of aortocoronary bypass graft; Z95.820 Peripheral vascular angioplasty status with implants and grafts; Z87.891 Personal history of nicotine dependence; Z86.73 Personal history of transient ischemic attack (TIA), and cerebral infarction without residual deficits; R07.9 Chest pain, unspecified

== ENCOUNTER 2019-01-09 17:33 | Emergency (ER) | payer MEDICARE ==
[~2019-01-09] VITALS: Ht 170.2 cm; Wt 79.0 kg
[~2019-01-09 17:33] MED LIST changes: +FLONASE SE27.5 MCG/S NAB
[2019-01-09] MEDS ORDERED: MEDDOSEPAK PO (19:09)
[2019-01-09] MEDS ORDERED: FLEXERIL5 M1 PO (19:09)
[2019-01-09 19:25] VITALS: BP 130/88
== END 2019-01-09 19:25 | disposition home or self-care (01) ==
LOC: ED 17:33
DX: M54.5 Low back pain (principal); I12.9 Hypertensive chronic kidney disease with stage 1 through stage 4 chronic kidney disease, or unspecified chronic kidney disease; N18.2 Chronic kidney disease, stage 2 (mild); I25.10 Atherosclerotic heart disease of native coronary artery without angina pectoris; I25.2 Old myocardial infarction; J44.9 Chronic obstructive pulmonary disease, unspecified; I48.91 Unspecified atrial fibrillation; W18.30XA Fall on same level, unspecified, initial encounter; Z95.1 Presence of aortocoronary bypass graft; Z86.73 Personal history of transient ischemic attack (TIA), and cerebral infarction without residual deficits

== ENCOUNTER 2019-01-12 14:13 | Emergency (ER) | payer MEDICARE ==
[~2019-01-12] VITALS: Ht 170.2 cm; Wt 82.0 kg
[~2019-01-12 14:13] MED LIST changes: +FLEXERIL5 M1 PO
[2019-01-12 16:00] VITALS: BP 128/77
== END 2019-01-12 16:00 | disposition home or self-care (01) ==
LOC: ED 14:13
DX: M47.816 Spondylosis without myelopathy or radiculopathy, lumbar region (principal); I12.9 Hypertensive chronic kidney disease with stage 1 through stage 4 chronic kidney disease, or unspecified chronic kidney disease; N18.2 Chronic kidney disease, stage 2 (mild); I25.10 Atherosclerotic heart disease of native coronary artery without angina pectoris; I25.2 Old myocardial infarction; J44.9 Chronic obstructive pulmonary disease, unspecified; I48.91 Unspecified atrial fibrillation; Z86.73 Personal history of transient ischemic attack (TIA), and cerebral infarction without residual deficits; Z95.1 Presence of aortocoronary bypass graft

== ENCOUNTER 2019-01-21 09:13 | Emergency (ER) | payer MEDICARE ==
[~2019-01-21] VITALS: Ht 170.2 cm; Wt 72.0 kg
[2019-01-21 09:42] LABS: HEMATOCRIT 37.2 % (39.0-50.0); HEMOGLOBIN 12.8 g/dl (14.0-18.0); IMMATURE GRANULOCYTES 2.1 % (0.0-5.0); MEAN CELL VOLUME 98.4 fL CALC (80.0-100.0); MEAN CORPUSCULAR HGB 33.9 pG CALC (26.0-32.0); MEAN CORPUSCULAR HGB CONC 34.4 g/L CALC (32.0-36.0); NEUT# 9.3 thou/uL (1.82-7.42); RED BLOOD COUNT 3.78 mill/uL (4.70-6.10); RED CELL DISTRI WIDTH 12.4 % (11.5-15.5)
[2019-01-21] MEDS ORDERED: TRAMADOL HYDROC50 M1 PO (09:55)
[2019-01-21 10:02] LABS: ALKALINE PHOSPHATASE 117 u/l (38-126); AMYLASE 44 u/l (30-110); ANION GAP 14 (6-22 (CALC)); BUN 20 mg/dL (8-23); BUN/CREATININE RATIO 20 (12-20 (CALC)); CARBON DIOXIDE 26 mmol/l (22-30); CHLORIDE 97 mmol/l (95-108); GFR > 60 ML/MIN (>=60 (CALC)); GFR FOR AFR.AMER. > 60 ML/MIN (>=60 (CALC)); LIPASE 16 u/l (23-300); POTASSIUM 4.8 mmol/l (3.5-5.1); SGOT/AST 45 u/l (19-48); SODIUM 133 mmol/l (137-146); TOTAL PROTEIN 7.1 g/dL (6.3-8.2)
[2019-01-21 10:10] LABS: BILIRUBIN, TOTAL 1.8 mg/dL (0.0-1.4)
[2019-01-21 10:14] LABS: MYOGLOBIN 94 ng/mL (0 - 121)
[2019-01-21 12:33] VITALS: BP 139/83
== END 2019-01-21 12:34 | disposition home or self-care (01) ==
LOC: ED 09:13
PROVIDERS: Family Medicine
DX: R07.89 Other chest pain (principal); I12.9 Hypertensive chronic kidney disease with stage 1 through stage 4 chronic kidney disease, or unspecified chronic kidney disease; N18.2 Chronic kidney disease, stage 2 (mild); I25.10 Atherosclerotic heart disease of native coronary artery without angina pectoris; J44.9 Chronic obstructive pulmonary disease, unspecified; I48.91 Unspecified atrial fibrillation; I25.2 Old myocardial infarction; Z95.1 Presence of aortocoronary bypass graft; Z86.73 Personal history of transient ischemic attack (TIA), and cerebral infarction without residual deficits

== ENCOUNTER 2019-03-13 10:59 | Emergency (ER) | payer MEDICARE ==
[~2019-03-13] VITALS: Ht 170.2 cm; Wt 81.0 kg
[~2019-03-13 10:59] MED LIST changes: +RANOLAZINE ER500 MG PO; +TRAMADOL HYDROC50 M1 PO
[2019-03-13 12:35] VITALS: BP 142/81
== END 2019-03-13 12:35 | disposition home or self-care (01) ==
LOC: ED 10:59
DX: R07.81 Pleurodynia (principal); I12.9 Hypertensive chronic kidney disease with stage 1 through stage 4 chronic kidney disease, or unspecified chronic kidney disease; N18.2 Chronic kidney disease, stage 2 (mild); I25.10 Atherosclerotic heart disease of native coronary artery without angina pectoris; I25.2 Old myocardial infarction; J44.9 Chronic obstructive pulmonary disease, unspecified; I48.91 Unspecified atrial fibrillation; W18.30XA Fall on same level, unspecified, initial encounter; Y92.481 Parking lot as the place of occurrence of the external cause; Z86.73 Personal history of transient ischemic attack (TIA), and cerebral infarction without residual deficits; Z95.1 Presence of aortocoronary bypass graft

== ENCOUNTER 2019-03-30 | Inpatient (IN) | payer MEDICARE ==
[2019-03-28 22:15] LABS: HEMATOCRIT 33.1 % (39.0-50.0); HEMOGLOBIN 11.3 g/dl (14.0-18.0); IMMATURE GRANULOCYTES 0.8 % (0.0-5.0); MEAN CELL VOLUME 101.2 fL CALC (80.0-100.0); MEAN CORPUSCULAR HGB 34.6 pG CALC (26.0-32.0); MEAN CORPUSCULAR HGB CONC 34.1 g/L CALC (32.0-36.0); NEUT# 5.16 thou/uL (1.82-7.42); RED BLOOD COUNT 3.27 mill/uL (4.70-6.10); RED CELL DISTRI WIDTH 13.5 % (11.5-15.5)
[2019-03-28 22:28] LABS: ALBUMIN 4.1 g/dL (3.2-5.0); ALKALINE PHOSPHATASE 109 u/l (38-126); BILIRUBIN, TOTAL 1.1 mg/dL (0.0-1.4); BUN 17 mg/dL (8-23); BUN/CREATININE RATIO 15 (12-20 (CALC)); CARBON DIOXIDE 26 mmol/l (22-30); CHLORIDE 105 mmol/l (95-108); CREATININE 1.1 mg/dL (0.7-1.3); GFR > 60 ML/MIN (>=60 (CALC)); GFR FOR AFR.AMER. > 60 ML/MIN (>=60 (CALC)); SGOT/AST 39 u/l (19-48); TOTAL PROTEIN 7.1 g/dL (6.3-8.2)
[2019-03-28 22:29] LABS: ANION GAP 13 (6-22 (CALC)); POTASSIUM 3.7 mmol/l (3.5-5.1); SODIUM 140 mmol/l (137-146)
[2019-03-28 22:40] LABS: MYOGLOBIN 107 ng/mL (0 - 121)
--- NOTE | 2019-03-29 02:46 | NUR ---
ELVIAAR SENT TO M/S
--- NOTE | 2019-03-29 03:26 | NUR ---
report called to Irene . Patient sleeping at this time, but earlier today patient was attempting to sign out ama, patient had nurse to call supervisor counseling and guidance to come and pick him up. Nurse informed patient to wait until tomorrow morning. Patient is alert and oriented x 4 patient orientation fluctuate. Patient vss lungs dimished.
[2019-03-29 03:47] VITALS: BP 150/106
--- NOTE | 2019-03-29 04:00 | NUR ---
NEW ADMIT PATIENT A/OX2, NO C/O PAIN, NO S/S RESP DISTRESS, PATIENT IN AFIB RVR PATIENT HEAT RATE 116, NOTIFIED DR.JAFFERI WASHINGTON ORDERED NO NEW ORDERS, WILL CONTINUE MONIOR PATIENT HOURLY ROUNDING, CALL LIGHT WITH REACH
--- NOTE | 2019-03-29 05:49 | NUR ---
PATIENT A/OX2, PATIENT NO S/S RESP DISTRESS, NO C/O PAIN, PATIENT REFUSED MD ORDERED EKG, EDUCATED THE PATIENT ABOUT THE PURPOSE EKG, PATIENT CONTINUE TO MONITOR PATIENT HOURLY ROUNDING, CALL LIGHT WITH REACH
--- NOTE | 2019-03-29 07:05 | NUR ---
REPORT RECEIVED BY FELICITY NORRIS;PT RESTING IN SEMI FOWLERS POSITION;INTRODUCED SELF TO PT AND POC DISCUSSED;PT REQUESTS TO KNOW WHEN THE DOCTOR IS COMING IN BECAUSE "IM LEAVING",CONFUSION NOTED AT THIS TIME;PT ALERT TO SELF ONLY,ATTEMPTS TO RE-ORIENT SUCCESSFUL;RESPIRATIONS EVEN AND UNLABORED ON RA;TELE MONITORING IN PLACE;PT ENCOURAGED TO CALL FOR ASSISTANCE IF NEEDED;ALL SAFETY PRECAUTIONS IN PLACE WITH BED IN THE LOWEST POSITION AND CALL LIGHT IN REACH;BED ALARM TO BE PLACED FOR SAFETY;WILL CONTINUE TO MONITOR
--- NOTE | 2019-03-29 07:45 | NUR ---
PT ATTEMPTING TO LEAVE AMA, SPOKE WITH PT (KENDAL). PER SPOUSE PT IS "TO MUCH FOR ME TO HANDLE",SPOUSE REPORTS THAT AT HOME PT HAS BEEN FOUND WALKING AROUND NAKED AND BECOMING INCREASINGLY CONFUSED;PT SPOKE WITH SPOUSE BUT STILL CONTINUES TO ATTEMPT TO LEAVE, NOTIFING WRITTER THAT "ILL HIT YOU, IM NOT AFRAID TO GO TO [facility]";BOOGIE,AUNDREARP NOTIFIED AND NEW ORDERS RECEIVED AT THIS TIME.
--- NOTE | 2019-03-29 08:00 | NUR ---
PT RESTING AT BEDSIDE WITH GAS METER REPAIRER ;VS OBTAINED AND ASSESSMENT COMPLETED;PT MEDICATED WITH 1MG OF ATIVAN IVP PER ORDER FOR AGITIATION;RESPIRATIONS EVEN AND UNLABORED,SHALLOW ON RA;PT SPOUSE NOTIFIED WRITTER THAT PT IS ON HOME O2 @ @2L CONTINUOUSLY;OXYGEN INITATED AT THIS TIME @ 2L VIA NC,DIMINISHED LUNG SOUNDS NOTED;ABDOMEN SOFT ON PALPATION AND ACTIVE IN ALL 4 QUADRANTS;WEAK PEDAL PULSES WITH TRACE EDEMA NOTED;TELE MONITORING PLACED BACK ON PT;#20G TO LEFT WRIST FLUSHED AND PATENT,SITE RE-SECURED WITH TAPE AND COBAN;PT RE-POSITIONED INTO BED;ALL SAFETY PRECAUTIONS REMAIN IN PLACE WITH BED ALARM ON FOR SAFETY;CALL LIGHT IN REACH;WILL CONTINUE TO MONITOR
[2019-03-29 08:04] VITALS: BP 138/74
--- NOTE | 2019-03-29 08:30 | NUR ---
PT APPEARS TO BE SLEEPING COMFORTABLY IN SEMI FOWLERS POSITION;NO S/S OF DISTRESS NOTED;RESPIRATIONS REMAIN SHALLOW ON O2 @ 2L VIA NC;TELE MONITORING IN PLACE;SAFETY PRECAUTIONS REMAIN WITH BED IN THE LOWEST POSITION AND BED ALARM ON FOR SAFETY;CALL LIGHT IN REACH;FREQUENT ROUNDS MADE.
[2019-03-29 11:00] VITALS: BP 150/80
--- NOTE | 2019-03-29 11:05 | NUR ---
PT APPEARS TO BE SLEEPING IN SUPINE POSITION;NO S/S OF DISTRESS NOTED;RESPIRATIONS APPEAR EVEN AND UNLABORED ON O2 @ 2L VIA NC;TELE MONITORING IN PLACE;IV SITE TO LEFT WRIST PATENT;ASSESSMENT REMAINS UNCHANGED AT THIS TIME;FALL PRECAUTIONS REMAIN IN PLACE WITH BED IN THE LOWEST POSITION AND BED ALARM ON FOR SAFETY;CALL LIGHT IN REACH;WILL CONTINUE TO MONITOR
[2019-03-29 15:14] VITALS: BP 123/69
--- NOTE | 2019-03-29 15:35 | NUR ---
PT OOB ATTEMPTING TO HAVE A BOWEL MOVEMENT;RESPIRATIONS EVEN AND UNLABORED,SHALLOW ON O2 @ 2L VIA NC;PT UNWILLING TO COOROPERATE WITH STAFF MEMBERS STATING "IM LEAVING YOU CANT KEEP ME HERE,WHERE IS MY ?";ATTEMPTS TO RE-ORIENT UNSUCCESSFUL;PT DENIES ANY CURRENT PAIN;TELE MONITORING IN PLACE;ABDOULAYE HYMAN NOTIFIED OF INCREASED AGITATION AND NEW ORDERS RECEIVED;IV SITE TO LW PATENT;ALL SAFETY PRECAUTIONS REMAIN IN PLACE WITH BED ALARM ON FOR SAFETY AND CALL LIGHT IN REACH;WILL CONTINUE TO MONITOR
--- NOTE | 2019-03-29 17:45 | NUR ---
PT APPEARS TO BE SLEEPING IN SUPINE POSITION;RESPIRATIONS EVEN AND UNLABORED ON O2 @ 2L VIA NC;NO S/S OF DISTRESS NOTED;TELE MONITORING IN PLACE;FALL PRECAUTIONS REMAIN IN PLACE WITH BED ALARM ON FOR SAFETY;CALL LIGHT IN REACH;WILL CONTINUE TO MONITOR
[2019-03-29 19:15] VITALS: BP 157/84
[2019-03-29 23:00] LABS: URINE BILIRUBIN - DIPSTICK NEGATIVE (NEGATIVE); URINE BLOOD DIPSTICK NEGATIVE (NEGATIVE); URINE COLOR YELLOW; URINE GLUCOSE - DIPSTICK NEGATIVE (NEGATIVE); URINE KETONE NEGATIVE (NEGATIVE); URINE LEUK ESTERASE NEGATIVE (NEGATIVE); URINE NITRITE - DIPSTICK NEGATIVE (Negative); URINE PROTEIN - DIPSTICK 100 mg/dL (NEG-TRACE); URINE SPECIFIC GRAVITY 1.025; URINE UROBILINOGEN - DIPSTICK 0.2 E.U./dL (0.2)
[2019-03-30 00:27] VITALS: BP 148/79
[2019-03-30 01:29] LABS: URINE BACTERIA FEW hpf; URINE EPITHELIAL CELLS FEW EPI/hpf (0-FEW)
--- NOTE | 2019-03-30 07:25 | NUR ---
REPORT RECEIVED FROM FELICITY NORRIS;PT FOUND OOB AMBULATING AROUND ROOM;PT CONFUSED TO PERSON,PLACE AND TIME;ATTEMPTS TO RE-ORIENT UNSUCCESSFUL;PT CAN BE COMBATIVE TOWARDS STAFF A TIMES WELL;PT REPOSITIONED IN RECLINER WITH 1 PERSON ASSIST AND BED ALARM PLACED;WILL CONTINUE TO MONITOR
--- NOTE | 2019-03-30 07:45 | NUR ---
BRI ORDER OBTAINED, ARACELI CARBONE AT BEDSIDE
--- NOTE | 2019-03-30 09:00 | NUR ---
PT REFUSES TO COOPERATE WITH STAFF, CONSTANTLY GETTING UP AND WONDERING AROUND THE ROOM EVEN WHEN SITTER IS PRESENT;PRIOR TO SCHEDULED ATIVAN 1MG IVP ADMINISTRATION PT THREW COFFEE AT STAFF MEMBERS;RESPIRATIONS SHALLOW ON RA, PT IS HOME DEPENDEDENT ON 2L BUT REFUSES TO LEAVE OXYGEN ON;WHEN ASKED ABOUT PAIN PT STATES "NO,IM GOING HOME";IV SITE TO RIGHT WRIST PATENT;TELE MONITORING D/C DUE TO PT UNABLE TO LEAVE ON;SITTER TO REMAIN AT BEDSIDE;FALL PRECAUTIONS REMAIN IN PLACE WITH BED ALARM ON FOR SAFETY;WILL CONTINUE TO MONITOR
[2019-03-30 09:45] VITALS: BP 166/118
--- NOTE | 2019-03-30 10:00 | NUR ---
AT BEDSIDE DISCUSSING POC WITH PT AND SPOUSE.
--- NOTE | 2019-03-30 12:15 | NUR ---
PT RESTING IN SEMI FOWLERS POSITION WITH SPOUSE AT BEDSIDE, PT BECOMES INCREASINGLY AGITATED AT TIMES;SCHEDULED IM ZYPREXA ADMINISTERED AT THIS TIME;RESPIRATIONS EVEN AND UNLABORED ON O2 @ 2L VIA NC;PT DENIES ANY CURRENT PAIN OR NEEDS;IV SITE PATENT;SITTER TO REMAIN AT BEDSIDE;FALL PRECAUTIONS IN PLACE WITH CALL LIGHT IN REACH;WILL CONTINUE TO MONTIOR
[2019-03-30 13:03] VITALS: BP 175/95
--- NOTE | 2019-03-30 15:50 | NUR ---
PT AWAKE, UNCOOPERATIVE WITH STAFF MEMBERS;PT WALKING AROUND ROOM,GETTING DRESSED, AND REPORTING THAT HE IS LEAVING;ATTEMPTS TO RE-ORIENT ONCE AGAIN UNSUCESSFUL;PT BECOMES COMBATIVE WITH STAFF MEMBERS, PUSHING THEM AWAY OR THREATENING TO HIT THEM;ABDOULAYE HYMAN NOTIFIED AND 1MG OF ATIVAN TO BE ADMINISTERED;ARACELI MARTIN TO REMAIN AT BEDSIDE SITTER;FALL PRECAUTIONS TO REMAIN IN PLACE;WILL CONTINUE TO MONITOR
[2019-03-30 17:01] VITALS: BP 178/102
--- NOTE | 2019-03-30 17:20 | NUR ---
PT UNCOOPERATIVE WITH STAFF MEMBERS;ATTEMPTING TO GET OUT OF BED AND HIT STAFF;PT REMAINS UNSTEADY ON FEET;PT ALSO CONTINUES TO REMOVED OXYGEN AND ATTEMPT TO REMOVE IV SITE; NOTIFIED AND ORDER FOR SOFT BEHAVIORAL WRIST RESTRAINTS OBTAINED;RESTRAINTS APPLIED AT THIS TIME BY FRANCA RN;SITTER TO REMAIN AT BEDSIDE.
--- NOTE | 2019-03-30 18:00 | NUR ---
IV SITE REMOVED WITH CATHETER INTACT DUE TO LEAKING.
--- NOTE | 2019-03-30 18:48 | NUR ---
NEW #22G STARTED TO RAC ON FIRST ATTEMPT BY THIS WRITTER,PT TOLERATED WELL.
[2019-03-30 18:49] VITALS: BP 147/88
--- NOTE | 2019-03-30 20:30 | NUR ---
PATIENT ALERT WITH CONFUSION, PATIENT ABLE TO MAKE NEEDS KNOWN, PATIENT NO C/O PAIN, NO S/S RESP DISTRESS, PATIENT ON O2 AT 2L VIA NC, PATIENT COMBATIVE AND RESTLESS, PATIENT TOLERATING SOFT RESTRAINTS, STAFF AT BESIDE MONITORING PATIENT CONTINOUSLY, WILL CONTINUE TO MONITOR PATIENT, CALL LIGHT WITHIN REACH
[2019-03-30 21:54] VITALS: BP 130/75
--- NOTE | 2019-03-31 00:40 | NUR ---
PATIENT ALERT WITH CONFUSION, PATIENT ABLE TO MAKE NEEDS KNOWN, PATIENT NO C/O PAIN, NO S/S RESP DISTRESS PATIENT ON O2 VIA NC, PATIENT TOLERATING RESRAINTS, ANTI-ANXIETY AND ANTI-PSYCHOTIC MED EFFECTIVE PATIENT IS NOT COMBATIVE AT THIS TIMES, PATIENT CONTINUE TO ATTEMPT TO LEAVE ROOM, MULTIPLE ATTEMPT TO REDIRECT PATIENT UNSUCCESS ATTEMPTS, SITTER AT BEDSIDE, WILL TO MONITOR PATIENT, CALL LIGHT WITHIN REACH
[2019-03-31 01:53] VITALS: BP 176/90
--- NOTE | 2019-03-31 04:51 | NUR ---
PATIENT ALERT WITH CONFUSION, PATIENT TO MAKE NEEDS KNOWN, PATIENT NO C/O PAIN, NO S/S RESP DISTRESS, PATIENT TOLERATING RESTRAINTS, SITTER BEDSIDE, WILL CONTINUE TO MONITOR PATIENT, CALL LIGHT WITHIN REACH
[2019-03-31 05:25] LABS: HEMOGLOBIN 11.8 g/dl (14.0-18.0); IMMATURE GRANULOCYTES 0.9 % (0.0-5.0); MEAN CELL VOLUME 102.9 fL CALC (80.0-100.0); MEAN CORPUSCULAR HGB 33.7 pG CALC (26.0-32.0); MEAN CORPUSCULAR HGB CONC 32.8 g/L CALC (32.0-36.0); NEUT# 4.9 thou/uL (1.82-7.42); RED BLOOD COUNT 3.5 mill/uL (4.70-6.10); RED CELL DISTRI WIDTH 13.3 % (11.5-15.5)
[2019-03-31 05:48] VITALS: BP 147/75
[2019-03-31 05:54] LABS: ANION GAP 10 (6-22 (CALC)); BUN 24 mg/dL (8-23); BUN/CREATININE RATIO 23 (12-20 (CALC)); CARBON DIOXIDE 25 mmol/l (22-30); CHLORIDE 107 mmol/l (95-108); CREATININE 1.1 mg/dL (0.7-1.3); GFR > 60 ML/MIN (>=60 (CALC)); GFR FOR AFR.AMER. > 60 ML/MIN (>=60 (CALC)); SODIUM 137 mmol/l (137-146)
--- NOTE | 2019-03-31 08:00 | NUR ---
PT SEEN AT REST IN THE BED UPON INITIAL EVALUATION, LOOSENED RESTRAINS. ARRIVED LATER, SEEN SOMEWHAT CONFUSED. LUNGS CLEAR BUT DIMINISHED, 2 LPM NC.
[2019-03-31 08:02] VITALS: BP 151/98
--- NOTE | 2019-03-31 12:00 | NUR ---
PT REMAINS AT REST IN THE BED, NO AGGRESSIVE BEHAVIOR NOTED AT THIS TIME. HAS BEEN IN TO VISIT.
[2019-03-31 15:47] VITALS: BP 110/70
--- NOTE | 2019-03-31 19:15 | NUR ---
REPORT RECEIVED FROM FELICITY MARCH. PT RESTING IN BED ALERT TO SELF. RESPIRATIONS ARE EVEN AND UNLABORED ON RA. LUNGS SOUND CLEAR/DIMINSHED. PT DENIES ANY PAIN OR DISCOMFORT AT THIS TIME. ONE TO ONE SITTER AT BEDSIDE FOR PT SAFETY. #20 RAC PATENT AND APPEARS HEALTHY. SAFETY PRECAUTIONS IN PLACE. WILL CONTINUE TO MONITOR.
[2019-03-31 20:17] VITALS: BP 133/79
--- NOTE | 2019-04-01 00:15 | NUR ---
PT BECOMING AGITATED, WANTING TO LEAVE, PUTTING ON CLOTHES, CALLING STAFF NAMES. PT TRYING TO HIT AND KICK STAFF. PT TO BE MEDICATED PER EMAR ORDERS.
--- NOTE | 2019-04-01 00:59 | NUR ---
PT IV NO LONGER PATENT. ATTEMPTS AT STARTING NEW IV FAILED. PT KICKED STAFF IN THE STOMACH. MD TO BE NOTIFIED.
--- NOTE | 2019-04-01 01:25 | NUR ---
MD MADE AWARE OF PT BEHAVIOR, NEW ORDERS OBTAINED, ATIVAN TO BE GIVEN IM. ORDERS TO BE CARRIED OUT. SAFETY PRECAUTIONS IN PLACE. WILL CONTINUE TO MONITOR.
--- NOTE | 2019-04-01 02:00 | NUR ---
PT COMBATIVE ATTEMPTING TO HURT STAFF AND TO HURT SELF, MADE AWARE NEW ORDER FOR RESTRAINTS GIVEN AT THIS TIME
[2019-04-01 04:10] VITALS: BP 164/85
[2019-04-01 05:55] LABS: HEMATOCRIT 31.2 % (39.0-50.0); HEMOGLOBIN 10.5 g/dl (14.0-18.0); IMMATURE GRANULOCYTES 0.8 % (0.0-5.0); MEAN CELL VOLUME 101.6 fL CALC (80.0-100.0); MEAN CORPUSCULAR HGB 34.2 pG CALC (26.0-32.0); MEAN CORPUSCULAR HGB CONC 33.7 g/L CALC (32.0-36.0); NEUT# 12.17 thou/uL (1.82-7.42); RED BLOOD COUNT 3.07 mill/uL (4.70-6.10); RED CELL DISTRI WIDTH 13.2 % (11.5-15.5)
[2019-04-01 06:07] LABS: CREATININE 1.4 mg/dL (0.7-1.3)
[2019-04-01 08:00] VITALS: BP 141/75
--- NOTE | 2019-04-01 08:00 | NUR ---
PT SEEN RESTING IN THE BED, NO DISTRESS NOTED. PT IS PASSIVE THIS MORNING, WRIST RESTRAINTS TRIAL RELEASED. PT DID TAKE MEDICINES WITHOUT SUSPICION IS SOMETIMES THE CASE. SITTER AT BEDSIDE.
--- NOTE | 2019-04-01 12:00 | NUR ---
PT PROVIDED ZYPREXA SHOT, CONTINUES TO BE MELLOW TODAY. AT BEDSIDE.
--- NOTE | 2019-04-01 14:55 | NUR ---
PT REMAINS UNDER CONTROL HE RESTS IN THE BED, STILL SOME CONFUSION NOTED. SITTER REMAINS AT BEDSIDE.
--- NOTE | 2019-04-01 18:50 | NUR ---
REPORT RECEIVED FROM FELICITY MARCH. PT RESTING IN BED, RESPIRATIONS EVEN AND UNLABORED ON RA. ONE TO ONE SITTER AT BED SIDE FOR PT SAFETY. WILL CONTINUE TO MONITOR.
--- NOTE | 2019-04-01 19:30 | NUR ---
PT RESTING IN BED STARTING TO GET AGITATED, KICKING BLANKETS OFF, WANTING TO LEAVE.
--- NOTE | 2019-04-01 19:45 | NUR ---
PT IV NO LONGER PATENT, PT AGITATED NO WANTING A NEW IV, PT TRYING TO GET OUT OF BED STATING "IM LEAVING YOU CAN'T KEEP ME HERE, WHERES THE CAR." ATTEMPTS TO REORIENT PT FAILED. MADE AWARE NEW ORDERS OBTAINED AND TO BE CARRIED OUT.
[2019-04-01 19:46] VITALS: BP 133/71
--- NOTE | 2019-04-01 22:00 | NUR ---
OPAL RN AT BEDSIDE STARTING IV, #22 LAC PATENT AND APPEARS HEALTHY. #2O RH REMOVED.
--- NOTE | 2019-04-02 04:04 | NUR ---
PT AGITATED TALKING TO SELF. KICKING BLANKETS OFF. REFUSING ORAL CARE. ONE TO ONE SITTER AT BED SIDE FOR PT SAFETY . WILL CONTINUE TO MONITOR.
[2019-04-02 04:54] VITALS: BP 150/80
--- NOTE | 2019-04-02 05:09 | NUR ---
PT HAVING BURST OF AGITATION. YELLIN, RESTLESS IN BED, PULLING O2 OFF, KICKING BLANKETS IN THE FLOOR. LIGHTS TURNED DOWN IN ATTEMPTS TO SETTLE PT. ONE TO ONE SITTER IN PLACE FOR PT SAFETY. WILL CONTINUE TO MONITOR.
[2019-04-02 05:44] LABS: ANION GAP 12 (6-22 (CALC)); BUN 38 mg/dL (8-23); BUN/CREATININE RATIO 30 (12-20 (CALC)); CARBON DIOXIDE 23 mmol/l (22-30); CHLORIDE 110 mmol/l (95-108); CREATININE 1.3 mg/dL (0.7-1.3); GFR 54 ML/MIN (>=60 (CALC)); GFR FOR AFR.AMER. > 60 ML/MIN (>=60 (CALC)); SODIUM 140 mmol/l (137-146)
[2019-04-02 08:15] VITALS: BP 169/97
--- NOTE | 2019-04-02 08:15 | NUR ---
PT LAYING IN BED. PT DROWSY/SLEEPING WITH GARBLED SPEECH. SOME AGITATION NOTED. SOFT RESTRAINTS IN PLACE. CICULATION CHECKED. ASSESSMENT COMPLETED. DISCUSSED POC BUT PT NEEDS REINFORCEMENT. WHEEZING/CRACKLES HEARD UPON AUSCULTATION. SITTER AT BEDSIDE. SUCTION AT BEDSIDE. CALL LIGHT IN REACH. CONTINUE TO MONITOR.
--- NOTE | 2019-04-02 09:50 | NUR ---
PT REFUSED TO TAKE 9 AM MEDICATIONS. BP 169/97. WILL CONTINUE TO MONITOR BP. SITTER AT BEDSIDE. CONTINUE TO MONITOR.
--- NOTE | 2019-04-02 11:00 | NUR ---
PT EXHIBITING SIGNS OF AGITATION WITH AT BEDSIDE . SOFT RESTRAINTS IN PLACE. SITTER AT BEDSIDE.
--- NOTE | 2019-04-02 12:19 | NUR ---
ATIVAN AND ZYPREXA ON HOLD PER HEEL WASHER STRINGING MACHINE OPERATOR/MD ORDERS.
--- NOTE | 2019-04-02 14:00 | NUR ---
PT LAYING DOWN IN BED SLEEPING. SITTER AT BEDSIDE. SOFT RESTRAINTS IN PLACE. CIRCULATION CHECKED. SUCTION AT BEDSIDE. CONTINUE TO MONITOR.
--- NOTE | 2019-04-02 16:00 | NUR ---
PT LAYING IN BED SLEEPING. SITTER AT BEDSIDE. SUCTION AT BEDSIDE. PT HAVING SMALL EPISODES OF NON PRODUCTIVE COUGH. CONTINUE TO MONITOR.
[2019-04-02 16:57] VITALS: BP 187/95
--- NOTE | 2019-04-02 16:57 | NUR ---
PT SITTING IN BED ATTEMPTING TO EAT MEAL WITH SITTER AT BEDSIDE. BP 187/95. MEDICATION WILL BE ATTEMPTED TO BE GIVEN.
--- NOTE | 2019-04-02 17:02 | NUR ---
IV LASIX GIVEN. PT TOLERATED WELL. PO CLONIDINE GIVEN WITH APPLE SAUCE. WHEEZING HEARD UPON AUSCULTATION. SHALLOW BREATHING OBSERVED. IV FLUIDS D/C PER DR YUNG. HEAD OF THE BED ELEVATED. PT SUCTIONED. CONTINUE TO MONITOR.
[2019-04-02 19:00] VITALS: BP 149/85
--- NOTE | 2019-04-02 19:05 | NUR ---
REPORT FROM TATUM GALAN. PT RESTING IN BED WITH SITTER AT BEDSIDE. SOFT BILATERAL WRIST RESTRAINTS NOTED. NO APPARENT DISTRESS NOTED. PT RESPIRATIONS SLIGHTLY LABORED BUT RESTING QUIETLY WITH EYES CLOSED. O2 VIA NC IN PLACE. CALL LIGHT WITHIN REACH. WILL CONTINUE TO MONITOR.
--- NOTE | 2019-04-02 21:43 | NUR ---
PT SPIT OUT ORDERED MEDICATIONS. PT STATES "THATS POISON". AFTER SOME CALM REASSURANCE PT AGREED TO TAKE MEDICATIONS. COFFEE PROVIDED UPON REQUEST. PT ANSWERING QUESTIONS APPROPRIATELY. EXTREMELY LABORED BREATHING NOTED. 97% @ 2L/M VIA NC PT REPOSITIONED WITH BED. BILATERAL SOFT WRIST RESTRAINTS LOOSENED FOR REPOSITIONING PT TOLERATED WELL. SITTER REMAINS IN ROOM. WILL CONTINUE TO MONITOR.
--- NOTE | 2019-04-02 22:45 | NUR ---
PT REMAINS ANXIOUS AND RESTLESS WITH LABORED BREATHING. BP ELEVATED. PT MEDICATED WITH PRN CLONIDINE. PT CONTINUES TO ANSWER QUESTIONS ASKED APPROPRIATELY. PT HAS REMOVED ALL CLOTHING AND DOES NOT WISH TO PUT GOWN BACK ON AT THIS TIME. PT COVERED WITH SHEET. WRIST RESTRAINTS REMAIN IN PLACE. SITTER AT BEDSIDE. WILL CONTINUE TO MONITOR.
--- NOTE | 2019-04-02 23:16 | NUR ---
BP STILL ELEVATED 189/107. PT GRABBING AT ABD WITH FACIAL GRIMACING, ABD SOFT, BOWEL SOUNDS NOTED IN ALL FOUR QUADRANTS. WHEN QUESTIONED ABOUT PAIN PT VERBALIZED "YES". MEDICATED WITH PRN TRAMADOL AND REPOSITIONED IN BED. WILL CONTINUE TO MONITOR.
[2019-04-02 23:41] VITALS: BP 169/96
--- NOTE | 2019-04-02 23:41 | NUR ---
PT RESTING IN BED WITH EYES CLOSED, BREATHING MORE RELAXED. BP TRENDING DOWN. WHEN ASKED ABOUT PAIN PT STATES "BETTER". SITTER REMAINS IN ROOM. WILL CONTINUE TO MONITOR.
--- NOTE | 2019-04-03 02:20 | NUR ---
SUPPOSITORY ADMINISTERED WITH EFFECT. PT TOLERATED WELL.
[2019-04-03 08:18] VITALS: BP 125/89
[2019-04-03 09:31] LABS: HEMATOCRIT 36.6 % (39.0-50.0); HEMOGLOBIN 11.9 g/dl (14.0-18.0); MEAN CELL VOLUME 104.9 fL CALC (80.0-100.0); MEAN CORPUSCULAR HGB 34.1 pG CALC (26.0-32.0); MEAN CORPUSCULAR HGB CONC 32.5 g/L CALC (32.0-36.0); RED BLOOD COUNT 3.49 mill/uL (4.70-6.10); RED CELL DISTRI WIDTH 13.7 % (11.5-15.5)
[2019-04-03 09:49] LABS: ANION GAP 12 (6-22 (CALC)); BUN 43 mg/dL (8-23); BUN/CREATININE RATIO 37 (12-20 (CALC)); CARBON DIOXIDE 24 mmol/l (22-30); CHLORIDE 111 mmol/l (95-108); CREATININE 1.1 mg/dL (0.7-1.3); GFR > 60 ML/MIN (>=60 (CALC)); GFR FOR AFR.AMER. > 60 ML/MIN (>=60 (CALC)); POTASSIUM 4.3 mmol/l (3.5-5.1); SODIUM 142 mmol/l (137-146)
--- NOTE | 2019-04-03 12:53 | NUR ---
PATIENT ALERT AND RESTLESS, NO C/O PAIN, PATIENT SHORTNESS OF BREATHE, PATIENT ON O2 VIA NC, DR. DAN AT BEDSIDE ASSESSING PATIENT, MD AWARE PATIENT IS RESTLESS, ONE TIME EARLY DOSE OF ATIVAN GIVEN, MD ORDER POSSIBLE TRANSFER TO OTHER HOSPITAL, WILL CONTINUE TO MONIOR PATIENT SITTER AT BESIDE, CALL LIGHT WITH REACH
[2019-04-03 13:14] VITALS: BP 176/100
--- NOTE | 2019-04-03 13:55 | NUR ---
PATIENT ALERT WITH CONFUSION, PATIENT LABORED BREATHING, PATIENT ON 02 VIA NC O2 SATS ARE 94%, PATIENT ELEVATED BLOOD PRESSURE PATIENT NOT FOLLOWING COMMANDS AT THIS, UNALE TO GIVE PATIENT PRN BP MED PO PATIENT WILL NOT SWALLOW NOTIFIED DR. NI WASHINGTON ORDERED FOR THE PATIENT TO BE TRANSFER TO OTHER HOSPITAL, WILL CONTINUE TO MONITOR PATIENT SITTER AT BEDSIDE, CALL LIGHT WITHIN REACH
--- NOTE | 2019-04-03 17:26 | NUR ---
PATIENT ALERT AND CONFUSED, NO S/S PAIN, NO S/S RESP DISTRESS, PATIENT PATIENT ON O2 VIA NC, TRANSFER TO [facility] FOR NEURO AND PYSCH CONSULATE, PATIENT BEING TRANSFER BY [facility], NURSE TO NURSE REPORT GIVE TO CE BLEVINS AT [facility]
== END 2019-04-03 17:15 | disposition short-term general hospital (02) | DRG 885 ==
PROVIDERS: Emergency Medicine; Internal Medicine; Nurse Practitioner Family; ADMIT Internal Medicine
DX: F23 Brief psychotic disorder (principal); I13.0 Hypertensive heart and chronic kidney disease with heart failure and stage 1 through stage 4 chronic kidney disease, or unspecified chronic kidney disease; I48.20 Chronic atrial fibrillation, unspecified; E46 Unspecified protein-calorie malnutrition; J43.9 Emphysema, unspecified; F22 Delusional disorders; E86.0 Dehydration; I16.0 Hypertensive urgency; I50.9 Heart failure, unspecified; N18.2 Chronic kidney disease, stage 2 (mild); I25.10 Atherosclerotic heart disease of native coronary artery without angina pectoris; I25.2 Old myocardial infarction; Z95.1 Presence of aortocoronary bypass graft; Z95.820 Peripheral vascular angioplasty status with implants and grafts; Z68.24 Body mass index [BMI] 24.0-24.9, adult; Z86.73 Personal history of transient ischemic attack (TIA), and cerebral infarction without residual deficits; Z78.1 Physical restraint status; Z87.891 Personal history of nicotine dependence; Z66 Do not resuscitate
CPT/HCPCS: G0378; J2060; S0166

== ENCOUNTER 2019-04-09 18:55 | Inpatient (IN) | payer MEDICARE ==
[~2019-04-09] VITALS: Ht 170.2 cm; Wt 74.0 kg
--- NOTE | 2019-04-09 18:32 | NUR ---
CALLED DR DAN RE: NO ORDERS FROM [facility]. RECEIVED ORDERS AND UPDATED THE MEDICATION RECONCILIATION LIST.
--- NOTE | 2019-04-09 18:35 | NUR ---
PT ARRIVED FROM [facility] WITH [employer] NO TRANSFER ORDERS IN THE PACKET. PLACED IN BED. WITH A NON REBREATHER,POLLOCK DRAINING YELLOW URINE. IV SITE IN PLACE. PT IS AWAKE AND NOT COMMUNICATING WELL. CONTINUE TOOBSERVE AND MONITOR.
[2019-04-09] MEDS ORDERED: METOPROL TAR25 MG PO (19:24)
[2019-04-09] MEDS ORDERED: ASPIRIN 81 LOW81 MG PO (19:26)
[2019-04-09] MEDS ORDERED: DULERA1 AE1 IN (19:29)
[2019-04-09] MEDS ORDERED: SEROQUEL50 MG PO (19:30)
[2019-04-09] MEDS ORDERED: SEROQUEL25 MG PO (19:31)
[2019-04-09] MEDS ORDERED: HALOPERIDOL5 MG IV (19:33)
--- NOTE | 2019-04-09 19:50 | NUR ---
SPOKE WITH PTS DAUGHTER JEB RE: PT BEING TRANSFERED HERE: STATED" THEY TOLD MY MOTHER THAT THEY WERE GOING TO TAKE THE TUBE OUT TOMORROW AND LET HIM GO". WILL COME AND SEE PT TOMORROW.
[2019-04-09 20:00] VITALS: BP 146/94
--- NOTE | 2019-04-09 20:22 | NUR ---
PT IVF STARTED. PT NON-VERBAL, JUST MOANING/GRUNTING IN THE BED. PULLING 02 NON-REBREITHER MASK OFF, MASK REPLACED. POLLOCK CATHETER DRAINING TO GRAVITY DARK YELLOW.
--- NOTE | 2019-04-09 22:50 | NUR ---
NON-REBREATHER MASK OFF, BUT JUST BELOW FACE, PT HANGING ON TO MASK, WILL NOT ALLOW REPLACEMENT. PT SAT LEVELS 02 STAYING 91-94% AT THIS TIME. PULSE OX LEFT TO MONITOR AT THIS TIME. SPREADER OPERATOR HAS BEEN PLACED, INITIAL READING AFIB 103. PT APPEARS CALM AT THIS TIME, BUT MAKING GRUNTING SOUNDS, EYES ARE CLOSED, UNRESPONSIVE TO MY VOICE OR CARE.
[2019-04-10 04:00] VITALS: BP 129/79
[2019-04-10 05:41] LABS: HEMATOCRIT 38.7 % (39.0-50.0); HEMOGLOBIN 12.8 g/dl (14.0-18.0); MEAN CELL VOLUME 102.9 fL CALC (80.0-100.0); MEAN CORPUSCULAR HGB CONC 33.1 g/L CALC (32.0-36.0); RED BLOOD COUNT 3.76 mill/uL (4.70-6.10); RED CELL DISTRI WIDTH 12.9 % (11.5-15.5)
--- NOTE | 2019-04-10 05:49 | NUR ---
PT 02 SAT LEVELS DROPPING BACK DOWN ON RA TO 88%, REBREATHER MASK REPLACED PLACED IN FRONT OF PT FACE, 99% AT THIS TIME IN RESPONSE.
[2019-04-10 06:06] LABS: CREATININE 1.8 mg/dL (0.7-1.3); POTASSIUM 3.8 mmol/l (3.5-5.1); TOTAL PROTEIN 5.7 g/dL (6.3-8.2)
[2019-04-10 06:14] LABS: ALBUMIN 2.7 g/dL (3.2-5.0); BILIRUBIN, TOTAL 1.6 mg/dL (0.0-1.4)
[2019-04-10 08:31] VITALS: BP 101/70
[2019-04-10 11:18] VITALS: BP 152/93
[2019-04-10 15:51] VITALS: BP 150/83
[2019-04-10] MEDS ORDERED: LANOXIN0.125 MG PO (16:58)
[2019-04-10] MEDS ORDERED: ZETIA10 MG PO (16:59)
--- NOTE | 2019-04-10 19:33 | NUR ---
PT D/C TO HOSPICE HOUSE FOR COMFORT CARE.
== END 2019-04-10 19:10 | disposition hospice, inpatient (51) | DRG 885 ==
LOC: MS2 18:55
PROVIDERS: ADMIT Internal Medicine; ATTEND Internal Medicine
DX: F22 Delusional disorders (principal); I13.0 Hypertensive heart and chronic kidney disease with heart failure and stage 1 through stage 4 chronic kidney disease, or unspecified chronic kidney disease; I50.9 Heart failure, unspecified; N18.2 Chronic kidney disease, stage 2 (mild); N40.0 Benign prostatic hyperplasia without lower urinary tract symptoms; J43.9 Emphysema, unspecified; I48.0 Paroxysmal atrial fibrillation; I25.10 Atherosclerotic heart disease of native coronary artery without angina pectoris; Z95.1 Presence of aortocoronary bypass graft; Z95.820 Peripheral vascular angioplasty status with implants and grafts; Z66 Do not resuscitate; Z51.5 Encounter for palliative care